=== PATIENT | female | born 1970 | race Caucasian/White ===

== ENCOUNTER 2016-10-28 18:19 | Emergency (ER) | payer OTHER ==
[~2016-10-28] VITALS: Ht 165.1 cm; Wt 110.0 kg
[~2016-10-28 18:19] MED LIST: ATOR80TA PO; BACL10TA PO; BUPR100CR PO; CALC0.25 PO; FLUT1SPR9; HYDR-3534 PO; LIDO2SOL SS; METO50CR PO; MONT10TA2 PO; MYCO500 PO; TRAZ100 PO; WARF1TAB PO
[2016-10-28 18:22] VITALS: BP 146/99; PULSE 84; RESP 20; TEMP 98.3; O2SAT 98
--- NOTE | 2016-10-28 19:13 | PD ---
HPI . Right eye swelling and slight drainage since Monday Chief Complaint: Eye Problems/Injury Time Seen by Provider: 19:12 Travel History International Travel<30 days: No Contact w/Intl Traveler<30days: No Traveled to known affect area: No History of Present Illness HPI 46-year-old female with past medical history of lupus, antiphospholipid syndrome on Coumadin INR for last week, fibromyalgia here with complaints of right eye swelling, redness and drainage since Monday. Patient tells me she went to an eye doctor and was told that they only treat the actual eyeball. She says she just went to an urgent care in [place] and was told that she will need to come in to the emergency department as she takes Coumadin daily and there was no safe antibiotic to prescribe her as an outpatient. Patient complains of mild discomfort in the thigh. She tells me that she has very high pain tolerance due to all of her medical conditions. She is currently taken antifungal secondary some thrush and yeast in her nasal passage. Reports being intermittently sick for the past 3 months. She does follow-up with her primary care provider [place] regularly. She tells me that has the ability to check her INR with a home agency. PFSH Past Medical History Hx Anticoagulant Therapy: Yes Autoimmune Disease: Yes (LUPUS) Depression: Yes High Cholesterol: Yes Cerebrovascular Accident: Yes Diminished Hearing: No Hypertension: Yes Respiratory: Yes Immunizations Current: No Social History Alcohol Use: Yes (OCC) Tobacco Use: Yes (E-CIG) Substance Use: No Allergies-Medications (Allergen,Severity, Reaction): Coded Allergies: No Known Allergies (Unverified , 10/28/16) Reported Meds & Prescriptions Reported Meds & Active Scripts Active Polytrim Opth Drops (Polymyxin/Trimethoprim Sulfate) 10,000-0.1 Unit/Ml-% Soln 1 Drop RIGHT EYE Q6HR 7 Days Clindamycin (Clindamycin HCl) 300 Mg Cap 300 Mg PO TID Lortab 7.5 mg/325 mg (Hydrocodone/Acetaminophen 7.5 mg/325 mg) 1 Tab 1 Tab PO Q6HR PRN Reported Warfarin Sodium 1 mg (Warfarin Sodium) 10 Mg Tab 10 Mg PO DAILY Cellcept 500 Mg Tab (Mycophenolate Mofetil) 500 Mg Tab 1,000 Mg PO Q12 Singulair (Montelukast Sodium) 10 Mg Tab 10 Mg PO HS Metoprolol Succinate ER 50 mg (Metoprolol Succinate) 50 Mg Tab 50 Mg PO HS Lidocaine Viscous (Lidocaine HCl) 2 % Promise 5 Ml SS Q6H PRN SWISH AND SPIT Lortab 7.5 mg/325 mg (Hydrocodone/Acetaminophen 7.5 mg/325 mg) 1 Tab 1 Tab PO TID Flonase Allergy Relief Ch (Fluticasone Propionate (Nasal)) 50 Mcg/Act Spr 2 [place] NA DAILY Calcitriol 0.25 Mcg Cap 0.25 Mcg PO DAILY Wellbutrin Sr (Bupropion HCl) 100 Mg Tab 100 Mg PO Q12 Atorvastatin 80 mg (Atorvastatin Calcium) 80 Mg Tab 80 Mg PO HS Review of Systems General / Constitutional: No: Fever Eyes: Positive: Blurred Vision, Drainage, Redness, No: Visual changes HENT: No: Headaches Cardiovascular: No: Chest Pain or Discomfort Respiratory: No: Shortness of Breath Gastrointestinal: No: Abdominal Pain Genitourinary: No: Dysuria Musculoskeletal: No: Pain Skin: No Rash Neurologic: No: Weakness Psychiatric: No: Depression Endocrine: No: Polydipsia Hematologic/Lymphatic: No: Easy Bruising Physical Exam Narrative GENERAL: AAO x 3, no acute distress, Well-nourished, well-developed patient. SKIN: Warm and dry. No visible rashes or bruising. Periorbital edema and erythema on the right side HEAD: Normocephalic and atraumatic. EYES: No scleral icterus. EOM intact, PERRLA, mild injection of right conjunctiva, there is purulent drainage visible on exam, periorbital edema that is mild and primarily located on upper eyelid, small pustule to right medial upper eyelid, no evidence entrapment. ENT: No nasal drainage noted. Mucous membranes pink. Airway patent. NECK: Supple, trachea midline. No JVD.No lymphadenopathy CARDIOVASCULAR: Regular rate and rhythm without murmurs, gallops, or rubs. RESPIRATORY: Breath sounds equal bilaterally. No accessory muscle use. No rhonchi or rales. GASTROINTESTINAL: Abdomen soft, non-tender, nondistended. EXTREMITIES: No cyanosis or edema. BACK: Nontender without obvious deformity. No CVA tenderness. 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 Data Data Last Documented VS Vital Signs Date Time Temp Pulse Resp B/P Pulse Ox O2 Delivery O2 Flow Rate FiO2 10/28/16 20:08 20 10/28/16 18:22 98.3 84 146/99 98 Room Air Orders Prothrombin Time / Inr (Pt) (10/28/16 19:22) Act Partial Throm Time (Ptt) (10/28/16 19:22) Clindamycin Inj (Cleocin Inj) (10/28/16 19:30) Clindamycin Inj (Cleocin Inj) (10/28/16 20:30) Labs Laboratory Tests Test 10/28/16 20:07 Prothrombin Time 14.6 SEC Prothromb Time International 1.3 RATIO Ratio Activated Partial 31.2 SEC Thromboplast Time MDM Medical Decision Making Medical Screen Exam Complete: Yes Emergency Medical Condition: Yes Medical Record Reviewed: Yes Differential Diagnosis Conjunctivitis, periorbital cellulitis, less likely abscess, Narrative Course 46-year-old female here with what appears to be a periorbital cellulitis and conjunctivitis of the right eye. Myself and Dr. Nunez have examined the patient. I will check her INR. I have provided her with 600 mg of IM clindamycin here in the emergency department. I will send her home with oral antibiotics and eyedrops. Will need to have her INR checked in the next 2 days. I have discussed this with her. She will need to have a follow-up on her eye within the next 2-3 days. She was instructed to return to the emergency department. She can also follow-up with ophthalmology. Patient is cleared for discharge and waiting on INR. I have discussed the case with Dana PENA. She will notify patient of her current INR and ready her for discharge. Patient verbalized understanding of instructions, questions were answered, and thanked me for their care. I advised them if their condition worsens, please return to the nearest emergency room for further care. Diagnosis Primary Impression: Periorbital cellulitis of right eye Additional Impression: Conjunctivitis Qualified Code: H10.31 - Acute conjunctivitis of right eye, unspecified acute conjunctivitis type Referrals: [employer] Patient Instructions: General Instructions Additional Instructions: Please have your INR levels checked in the next 2 days. You will also need to have a recheck of this I within the next 2-3 days. You can return to [place] or go to an [place] [facility]. If you develop any sudden loss of vision or sudden onset of eye pain, go to the nearest emergency department. Please return to emergency department if your symptoms return or worsen. Follow up with your primary care provider. Take medications as prescribed. Med/Other Pt SpecificInfo: Prescription(s) given Scripts Polymyxin B-Trimethoprim Opth Drops (Polytrim Opth Drops)10,000-0.1 Unit/Ml-% Soln1 Drop RIGHT EYE Q6HR 7 Days Ref 0 Prov:Blaise Nunez MD 10/28/16 Clindamycin 300 Mg [id number] Mg PO TID #21 CAP Prov:Blaise Nunez MD 10/28/16 Disposition: 01 DISCHARGE HOME Condition: Stable Madelyn Daugherty Oct 28, 2016 19:13
[2016-10-28] MEDS ORDERED: CLINDAMYCIN PHOS 600 MG/4 ML VIAL IM ONE (19:30)
[2016-10-28] MEDS ORDERED: CLIN1CAP6 PO (19:54)
[2016-10-28] MEDS ORDERED: POLY10O RIGHT EYE (19:54)
[2016-10-28 20:25] LABS: APTT (PATIENT) 31.2 SEC (24.3-30.1); INTERNATIONAL NORMALIZED RATIO 1.3 RATIO; PROTHROMBIN TIME - PATIENT 14.6 SEC (9.8-11.6)
[2016-10-28] MEDS ORDERED: CLINDAMYCIN INJ 600 MG in SODIUM CHLORIDE 0.9% INJ 100 ML IV ONE (20:30)
== END 2016-10-28 21:13 | disposition home or self-care (01) ==
LOC: NEPD 18:19
DX: L03.213 Periorbital cellulitis (principal); H10.31 Unspecified acute conjunctivitis, right eye; H53.8 Other visual disturbances; M32.9 Systemic lupus erythematosus, unspecified; I10 Essential (primary) hypertension; E78.00 Pure hypercholesterolemia, unspecified; D68.61 Antiphospholipid syndrome; Z72.0 Tobacco use; Z79.01 Long term (current) use of anticoagulants
CPT/HCPCS: 85610; 85730; 96374

== ENCOUNTER 2017-07-18 11:31 | Emergency (ER) | payer OTHER ==
[~2017-07-18] VITALS: Ht 170.2 cm; Wt 102.4 kg
[~2017-07-18 11:31] MED LIST changes: -BACL10TA PO; +CLIN300C5 PO; +POLY10O RIGHT EYE; -TRAZ100 PO
[2017-07-18 11:37] VITALS: BP 186/111; PULSE 75; RESP 18; TEMP 98.4; O2SAT 98
--- NOTE | 2017-07-18 12:13 | PD ---
HPI Chief Complaint: Musculoskeletal Complaint Time Seen by Provider: 11:56 Travel History International Travel<30 days: No Contact w/Intl Traveler<30days: No Traveled to known affect area: No History of Present Illness HPI This 47-year-old female is complaining of pain in both of her hips. The pain is quite severe and makes it very difficult for her to walk. She has been diagnosed with arthritis in the past. She has had lupus for many years. She has antiphospholipid antibody syndrome and has had 2 strokes in the past. She is on Eliquis. She also has fibromyalgia. She has been having pain in both of her hips for some time and seems to be getting worse. In the past she has been on steroids for her lupus. She has a history of lupus nephritis. She does not think she has been on steroids for several years. She has numbness of the right side of her body and some motor weakness on the left side secondary to her strokes PFSH Past Medical History Hx Anticoagulant Therapy: Yes Autoimmune Disease: Yes (LUPUS) Depression: Yes Cardiovascular Problems: Yes (HTN) High Cholesterol: Yes Cerebrovascular Accident: Yes Diminished Hearing: No Hypertension: Yes Medical other: Yes (Antiphospholipid syndrome) Respiratory: Yes Immunizations Current: No Tetanus Vaccination: Unknown Influenza Vaccination: No ?: Not : 3 Miscarriage: 3 Tubal Ligation: Yes Social History Alcohol Use: Yes (OCC) Tobacco Use: Yes (1/2 PPD) Substance Use: No Allergies-Medications (Allergen,Severity, Reaction): Coded Allergies: No Known Allergies (Unverified Adverse Reaction, Unknown, 07/18/17) Reported Meds & Prescriptions Reported Meds & Active Scripts Active Celecoxib 100 Mg Cap 100 Mg PO BID 10 Days Hydrocodone-Acetamin 10-325 mg (Hydrocodone/Acetaminophen) 10 Mg-325 Mg Tablet 1 Tab PO Q6HR Polytrim Opth Drops (Polymyxin/Trimethoprim Sulfate) 10,000-0.1 Unit/Ml-% Soln 1 Drop RIGHT EYE Q6HR 7 Days Clindamycin (Clindamycin HCl) 300 Mg Cap 300 Mg PO TID Lortab 7.5 mg/325 mg (Hydrocodone/Acetaminophen 7.5 mg/325 mg) 1 Tab 1 Tab PO Q6HR PRN Reported Warfarin Sodium 1 mg (Warfarin Sodium) 10 Mg Tab 10 Mg PO DAILY Cellcept 500 Mg Tab (Mycophenolate Mofetil) 500 Mg Tab 1,000 Mg PO Q12 Singulair (Montelukast Sodium) 10 Mg Tab 10 Mg PO HS Metoprolol Succinate ER 50 mg (Metoprolol Succinate) 50 Mg Tab 50 Mg PO HS Lidocaine Viscous (Lidocaine HCl) 2 % Promise 5 Ml SS Q6H PRN SWISH AND SPIT Lortab 7.5 mg/325 mg (Hydrocodone/Acetaminophen 7.5 mg/325 mg) 1 Tab 1 Tab PO TID Flonase Allergy Relief Ch (Fluticasone Propionate (Nasal)) 50 Mcg/Act Spr 2 [place] NA DAILY Calcitriol 0.25 Mcg Cap 0.25 Mcg PO DAILY Wellbutrin Sr (Bupropion HCl) 100 Mg Tab 100 Mg PO Q12 Atorvastatin 80 mg (Atorvastatin Calcium) 80 Mg Tab 80 Mg PO HS Review of Systems General / Constitutional: No: Fever, Chills Eyes: No: Diploplia HENT: No: Headaches, Vertigo Cardiovascular: No: Chest Pain or Discomfort, Palpitations Respiratory: No: Cough, Shortness of Breath Gastrointestinal: No: Vomiting, Diarrhea Genitourinary: No: Urgency, Frequency Musculoskeletal: Positive: Myalgias, Pain Skin: No Rash Neurologic: Positive: Weakness Endocrine: No: Cold Intolerance Hematologic/Lymphatic: No: Easy Bruising Physical Exam Narrative GENERAL: Well-developed female SKIN: Focused skin assessment warm/dry. HEAD: Atraumatic. Normocephalic. EYES: Pupils equal and round. No scleral icterus. No injection or drainage. ENT: No nasal bleeding or discharge. Mucous membranes pink and moist. NECK: Trachea midline. No JVD. CARDIOVASCULAR: Regular rate and rhythm. No murmur appreciated. RESPIRATORY: No accessory muscle use. Clear to auscultation. Breath sounds equal bilaterally. GASTROINTESTINAL: Abdomen soft, non-tender, nondistended. Hepatic and splenic margins not palpable. MUSCULOSKELETAL: No obvious deformities. No clubbing. No cyanosis. No edema. There is tenderness of both hips. She has pain with movement of both hips there is crepitance with movement of the right hip and knee NEUROLOGICAL: Awake and alert. No obvious cranial nerve deficits. Motor grossly within normal limits. Normal speech. PSYCHIATRIC: Appropriate mood and affect; insight and judgment normal. Data Data Last Documented VS Vital Signs Date Time Temp Pulse Resp B/P (MAP) Pulse Ox O2 Delivery O2 Flow Rate FiO2 07/18/17 11:37 98.4 75 18 186/111 (136) 98 Orders Orders Hip, Uni(Ap&Lat) Wo Ap Pelvis (07/18/17 12:10) Hip, Uni(Ap&Lat) W Ap Pelvis (07/18/17 12:10) MDM Medical Decision Making Medical Screen Exam Complete: Yes Emergency Medical Condition: Yes Medical Record Reviewed: Yes Differential Diagnosis Differential includes aseptic necrosis, osteoarthritis, Narrative Course X-ray shows loss of joint space and sclerosis consistent with osteoarthritis. Patient has plans to follow-up with orthopedic surgery. She is quite symptomatic and may well need hip replacement though be quite complicated in view of her medical issues Diagnosis Primary Impression: Osteoarthritis of hips, bilateral Scripts Celecoxib (Celecoxib) 100 Mg Cap 100 MG PO BID for Pain Management for 10 Days, #20 CAP 0 Refills Prov: Raciel Cartagena MD 07/18/17 Hydrocodone/Acetaminophen (Hydrocodone-Acetamin 10-325 mg) 10 Mg-325 Mg Tablet 1 TAB PO Q6HR for Pain, #20 Prov: Raciel Cartagena MD 07/18/17 Disposition: 01 DISCHARGE HOME Condition: Stable Raciel Cartagena MD Jul 18, 2017 12:13
[2017-07-18] MEDS ORDERED: CELE1CAP6 PO (13:27)
[2017-07-18] MEDS ORDERED: HYDR-3583 PO (13:27)
--- NOTE | 2017-07-18 13:29 | RADRPT ---
EXAM DATE/TIME: 07/18/2017 12:29 [facility] COMPARISON: No previous studies available for comparison. INDICATIONS : Chronic right hip pain with no known injury x 2+ weeks. MEDICAL HISTORY : CVA x 2. Hpertension. Hypercholesterolemia. Arthritis. Lupus. Antiphospholipid antibody syndrome. Fib romyalgia. SURGICAL HISTORY : Tubal ligation. ENCOUNTER: Initial ACUITY: 2 weeks PAIN SCORE: 9/10 LOCATION: Right hip FINDINGS: AP and lateral views of the right hip joint demonstrate no fracture or dislocation. There is severe s uperior joint space narrowing with subchondral sclerosis and likely subchondral cystic change. There are minimal osteophytes. Left hip joint is not well-visualized but also demonstrates severe superior joint space narrowing. No soft tissue abnormality or radiopaque foreign body is identified. CONCLUSION: Severe arthritis at the right hip joint, most likely osteoarthritis. No acute right hip abnormality i s identified. Sigifredo Hooks MD on July 18, 2017 at 13:27 Board Certified Radiologist. This report was verified electronically.
--- NOTE | 2017-07-18 13:31 | RADRPT ---
EXAM DATE/TIME: 07/18/2017 12:29 [facility] COMPARISON: No previous studies available for comparison. INDICATIONS : Chronic Left hip pain with no known injury x 2+ weeks. MEDICAL HISTORY : CVA x 2. Hpertension. Hypercholesterolemia. Arthritis. Lupus. Antiphospholipid antibody syndrome. Fib romyalgia. SURGICAL HISTORY : Tubal ligation. ENCOUNTER: Initial ACUITY: 2 weeks PAIN SCORE: 9/10 LOCATION: Left hip FINDINGS: AP view of the pelvis with 2 views of the left hip joint demonstrate no fracture or dislocation. Mine ralization is normal. There is severe superior joint space narrowing with mild superior lateral migra tion of the femoral head. Mild subchondral sclerosis is present with minimal osteophytes. No soft tis gideon abnormality is seen. CONCLUSION: Severe left hip joint arthritis with mild superior lateral migration of the femoral head. These horta es may be related to osteoarthritis and the findings appear similar in the right hip joint. Sigifredo Hooks MD on July 18, 2017 at 13:28 Board Certified Radiologist. This report was verified electronically.
[2017-07-18 14:14] LABS: BILIRUBIN, URINE NEG (NEG); BLOOD, URINE NEG (NEG); GLUCOSE,URINE NEG (NEG); KETONE, URINE NEG (NEG); NITRITE,URINE NEG (NEG); URINE LEUKOCYTE ESTERASE NEG (NEG)
[2017-07-18 14:23] LABS: URINE COLOR STRAW (YELLW/STRAW); WBC, URINE 0-2 /hpf (0-5)
[2017-07-18 14:24] LABS: SQUAMOUS EPITHELIAL CELL URINE 0-3 /hpf (0-5)
[2017-07-18 14:45] VITALS: BP_SYST 120; BP_SYST 168; BP_DIAS 68; BP_DIAS 98
== END 2017-07-18 14:47 | disposition home or self-care (01) ==
LOC: PHED 11:31
DX: M16.0 Bilateral primary osteoarthritis of hip (principal); D68.61 Antiphospholipid syndrome; M32.14 Glomerular disease in systemic lupus erythematosus; I63.9 Cerebral infarction, unspecified; G81.91 Hemiplegia, unspecified affecting right dominant side; I10 Essential (primary) hypertension; F32.9 Major depressive disorder, single episode, unspecified; F17.210 Nicotine dependence, cigarettes, uncomplicated; Z79.01 Long term (current) use of anticoagulants
CPT/HCPCS: 73502; 81001; 99284

== ENCOUNTER → 2017-09-22 | Outpatient (CLI) | payer OTHER ==
[~2017-09-22] MED LIST changes: +AMIT25TA9 PO; +APIX2.5T PO; +APIX5TAB PO; +ATOR80TA45 PO; +CELE100C PO; +CELE1CAP6 PO; +FLUO40CA PO; +HYDR-3583 PO; +METO25TA3 PO; +MONT10TA4 PO; +MYCO500T PO; +OMEP40CA2 PO; +OXYB5TAB8 PO; +SPIR25TA PO; +TIZA4CAP3 PO; +WALKER WHEELS/F1 MIS
== END ==
LOC: CPRE 11:11
PROVIDERS: ATTEND Orthopaedic Surgery Orthopaedic Surgery of the Spine
DX: Z01.810 Encounter for preprocedural cardiovascular examination (principal)

== ENCOUNTER 2017-09-26 06:23 | Inpatient (IN) | payer OTHER, MEDICARE ==
[~2017-09-26] VITALS: Ht 165.1 cm; Wt 113.5 kg
[~2017-09-26 06:23] MED LIST changes: -APIX2.5T PO; -ATOR80TA PO; -BUPR100CR PO; -CELE1CAP6 PO; -CLIN300C5 PO; -FLUT1SPR9; -HYDR-3534 PO; -LIDO2SOL SS; -METO50CR PO; -MONT10TA2 PO; -MYCO500 PO; -POLY10O RIGHT EYE; -WALKER WHEELS/F1 MIS; -WARF1TAB PO
[2017-09-26] MEDS ORDERED: MIDAZOLAM HCL 2 MG/2 ML VIAL ONE (07:05)
[2017-09-26] MEDS ORDERED: POVIDONE IODINE 5% (ANTISEPSIS KIT) 4 APPLICATIONS EACH NARE PRN (07:15)
[2017-09-26] MEDS ORDERED: SODIUM CHLORID 0.9% 500 ML IV PRN (07:15)
[2017-09-26] MEDS ORDERED: LACTATED RINGER'S 1000 ML IV PRN (07:15)
[2017-09-26] MEDS ORDERED: CHLORHEXIDINE GLUCONATE 2 % 1 PACK (2 CLOTHS) TOPICAL PRN (07:15)
[2017-09-26] MEDS ORDERED: METOPROLOL TARTRATE 25 MG TAB PO PRN (07:15)
[2017-09-26] MEDS ORDERED: GENTAMICIN SULFATE 80 MG/2 ML VIAL ONE (08:17)
[2017-09-26] MEDS ORDERED: VANCOMYCIN 1 GM/200 ML PREMIX IV SCH (09:00)
[2017-09-26] MEDS ORDERED: CHLORHEXIDINE GLUCONATE 4% SOLN 120 ML BTL TOPICAL SCH (09:00)
[2017-09-26] MEDS ORDERED: EXPAREL PERI-ARTICULAR INJECTION (TOTAL VOL. 60 ML) P-ARTICULR SCH ×2 (09:00)
[2017-09-26] MEDS ORDERED: TRANEXAMIC ACID INJ 1,135 MG in SODIUM CHLORIDE 0.9% INJ 100 ML IV SCH (09:00)
[2017-09-26] MEDS ORDERED: ceFAZolin 2 GM PREMIX 50 ML IV SCH (09:00)
[2017-09-26] MEDS ORDERED: BUPIVACAINE/EPINEPHRINE 0.5% PF 10 ML VIAL ONE (11:02)
[2017-09-26] MEDS ORDERED: SODIUM CHLORIDE 0.9% 20 ML VIAL ONE (11:02)
[2017-09-26] MEDS ORDERED: ONDANSETRON HCL 4 MG/2 ML VIAL IV PUSH ONE (12:00)
[2017-09-26] MEDS ORDERED: MORPHINE SULFATE 8 MG/ML INJ IM PRN (12:00)
[2017-09-26] MEDS ORDERED: PROPOFOL 200 MG/20 ML AMP IV ONE (12:00)
[2017-09-26] MEDS ORDERED: NALOXONE HCL 0.4 MG/ML AMP IV PUSH PRN (12:00)
[2017-09-26] MEDS ORDERED: NEOSTIGMINE 5 MG/5 ML SYRINGE IV PUSH ONE (12:00)
[2017-09-26] MEDS ORDERED: ceFAZolin INJ 1,000 MG VIAL IV ONE (12:00)
[2017-09-26] MEDS ORDERED: ROCURONIUM INJ 50 MG/5 ML SYRINGE IV PUSH ONE (12:00)
[2017-09-26] MEDS ORDERED: LACTATED RINGER'S 1000 ML INJ 1,000 ML IV ONE (12:00)
[2017-09-26] MEDS ORDERED: LIDOCAINE HCL 1% PF 5 ML SYRINGE OTHER ONE (12:00)
[2017-09-26] MEDS ORDERED: KETOROLAC TROMETHAMINE 30 MG/ML (IVP) VIAL IV PUSH ONE (12:00)
[2017-09-26] MEDS ORDERED: GLYCOPYRROLATE 1 MG/5 ML SYRINGE IV PUSH ONE (12:00)
--- NOTE | 2017-09-26 12:04 | PD.OP ---
cc: Alex Gonzalez MD Operative Report Osteoarthritis left hip. Avascular necrosis, left hip. Acetabular dysplasia, left hip Postoperative Diagnosis: Same Procedure: Left total hip replacement arthroplasty, direct anterior exposure Anesthesia: General Surgeon: Alex Gonzalez Circus Trainer(s): LIANNA Robles Operation and Findings: EBL: 300 cc INDICATION: This patient presents with significant hip pain related to severe acetabular dysplasia with osteoarthritis and evidence of avascular necrosis. She has bilateral hip disease. The patient has significant medical conditions and has had a previous CVA many years ago related to a hypercoagulable state. She has weakness of the left leg. We anticipate bilateral hip replacement because of severe arthritis to the point that she is unable to ambulate other than transferring. Despite extensive conservative care this patient continues to be painful and now presents for surgical treatment. NOTE: Genia Robles PA-C was present for the entire surgical procedure as my legal executive assistant. In my medical opinion her skill and care was necessary for the proper management of this patient. COMPONENTS: COMPANY: [employer] CUP: [place], 48 mm, 100 series, gription surface LINER: Altrx 32, neutral STEM: [place], size 11, standard offset, hydroxyapatite-coated HEAD: Ceramic, 32, +1, 05/04 taper PROCEDURE: This patient was brought to the operating room and anesthetized in the supine position and positioned on the fracture table with both legs held extended. The left hip and leg was scrubbed with alcohol followed by Hibiclens followed by ChloraPrep and draped sterilely. Antibiotics were given within routine time window and a timeout was done. A 4 inch incision was made starting 2 cm distal and 2 cm lateral to the anterior superior iliac spine. The fascia laurel was opened longitudinally. The interval between the fascia laurel and the rectus was opened down to the capsule of the hip joint. Retractors were positioned allowing good visualization of the capsule. This was opened longitudinally and flaps were created. Stay sutures were utilized. Exposure was excellent. The neck was cut at the proper location using fluoroscopy as a guide. The head was removed. Deep retractors were positioned allowing good visualization of the acetabulum. Acetabulum was deepened down to the floor starting with a proper size reamer and reaming up to 47 mm. A trial was utilized. Fluoroscopy was used to check position and confirmed satisfactory alignment. Some of the reaming was performed under direct fluoroscopic guidance. The rim was reamed with a 48 mm reamer and the final cup was positioned in approximately 20 of anteversion and 40-45 of abduction. Position was satisfactory. A single hole eliminator was positioned followed by the final liner. The lifting hook was utilized. The leg was dropped to the floor, maximally externally rotated and brought across the midline. Retractors were positioned. A box osteotome was utilized followed by progressive broaching to the proper stem size. Trial reduction showed excellent alignment and fit. With 60 of external rotation the leg was dropped to the floor without evidence of anterior subluxation. The wound was irrigated. The final stem was inserted and was found to be very stable. The final reduction using the final head. Stability was as previously noted. Intraoperative x-rays were taken. The wound was irrigated copiously. Hemostasis was controlled. Local anesthesia was utilized. The capsule was repaired with #2 Tycron sutures. The fascia laurel was repaired with running 0 PDS on a loop. Subcutaneous tissue was approximated with 2-0 Vicryl and skin with running intradermal 3-0 Vicryl followed by Steri-Strips. A sterile dressing was applied. The patient was awakened and taken to the recovery room in satisfactory condition. FINDINGS: There was severe acetabular dysplasia. Cup position was slightly higher than normal but overall had very good circumferential coverage allowing us to place a 100 series cup without screws. Final stability fit and fill and leg length was very satisfactory. We intentionally lengthened the leg by about 6-8 mm. Alex Gonzalez MD September 26, 2017 12:04
--- NOTE | 2017-09-26 12:06 | RADRPT ---
EXAM DATE/TIME: 09/26/2017 10:14 [facility] COMPARISON: No previous studies available for comparison. INDICATIONS : Left total hip replacement. MEDICAL HISTORY : None. SURGICAL HISTORY : None. ENCOUNTER: Initial ACUITY: 1 day PAIN SCORE: Non-responsive. LOCATION: Left Hip FINDINGS: A two view intraoperative examination of the left hip was performed. Left total hip arthroplasty. Bot h the acetabular and femoral components are appropriately positioned without fracture or dislocation. CONCLUSION: Appropriate postoperative appearance of the left hip status post total arthroplasty. Bronson Joyce MD on September 26, 2017 at 12:03 Board Certified Radiologist. This report was verified electronically.
[2017-09-26] MEDS ORDERED: APIX2.5T PO (12:07)
[2017-09-26] MEDS ORDERED: HYDR-3583 PO (12:07)
[2017-09-26] MEDS ORDERED: Post-op Orders (for Pharmacy) XX ONE (12:30)
[2017-09-26] MEDS ORDERED: *morphine SULFATE 4 MG/ML PERIprocedure ONLY ONE ×2 (12:58→13:13)
[2017-09-26] MEDS: LACTATED RINGER'S 1000 ML INJ 1,000 ML IV SCH (13:00)
[2017-09-26] MEDS: AMITRIPTYLINE HCL 25 MG TAB PO SCH ×2 (13:00→18:16)
[2017-09-26] MEDS ORDERED: DO NOT ADM ANY ANTICOAGULANT DRUGS PRN (13:45)
[2017-09-26] MEDS ORDERED: *HYDROmorphone PF 0.5 MG/0.5 ML PERIprocedure ONLY ONE (13:47)
[2017-09-26 16:00] VITALS: BP 133/76; PULSE 78; RESP 18; TEMP 97.6; O2SAT 95
[2017-09-26 17:27] VITALS: O2SAT 95
[2017-09-26 20:50] VITALS: BP 145/82; PULSE 79; RESP 17; TEMP 98.1; O2SAT 99
[2017-09-26] MEDS: MONTELUKAST SODIUM 10 MG TAB PO SCH (21:00)
[2017-09-26] MEDS: CELECOXIB 100 MG CAP PO SCH (21:34)
[2017-09-26] MEDS: MAGNESIUM HYDROXIDE SUSP 30 ML CUP PO SCH (21:34)
[2017-09-26] MEDS: OXYBUTYNIN CHLORIDE 5 MG TAB PO SCH (21:35)
[2017-09-26] MEDS: SENNOSIDES 8.6 MG TAB PO SCH (21:35)
[2017-09-26] MEDS: METOPROLOL TARTRATE 25 MG TAB PO SCH (21:36)
[2017-09-26] MEDS: ATORVASTATIN 80 MG TAB PO SCH (21:36)
[2017-09-26] MEDS: ACETAMINOPHEN/HYDROcodone 325 MG/10 MG TAB PO PRN (21:59)
[2017-09-26] MEDS: APIXABAN 2.5 MG TABLET PO SCH (22:17)
--- NOTE | 2017-09-26 22:28 | HHI.DCPOC ---
Discharge Care Plan Diagnosis: (1) Avascular necrosis of bone of left hip Your Health Problems Are: Difficulty with ADL Incision/Drains Swelling Goals to Promote Your Health * To prevent worsening of your condition and complications * To maintain your health at the optimal level Directions to Meet Your Goals Take your medications as prescribed Follow your dietary instruction Follow activity as directed Keep your appointments as scheduled Take your immunizations and boosters as scheduled If your symptoms worsen call your PCP, if no PCP go to Urgent Care Center or Emergency Room Smoking is Dangerous to Your Health. Avoid second hand smoke Call the 24-hour hour crisis hotline for domestic abuse at [facility] September 26, 2017 22:28
--- NOTE | 2017-09-26 22:28 | HHI.FF ---
Face to Face Verification Diagnosis: (1) Avascular necrosis of bone of left hip Physical Therapy Gait training, Safety evaluation, Transfer training, bed to chair Hip: Total hip, Protocol: Left, Progress to weight bearing Left LE Weight Bearing: WB as tolerated Additional Instructions PT 4 days/wk for 2 weeks. WBAT Left LE. Anterior ZARIA precautions. Walker assist. Nursing RN Days per Week: 2 x Week(s): 1 Dressing Changes: Do not change dressing Additional Instructions Vitals assessment. Dressing assessment - do not change unless saturated. I have seen patient Krystal Mccormick on 09/26/17. My clinical findings support the need for the requested home health care services because: Limited ability to care for self High risk of falls I certify that my clinical findings support that this patient is homebound because: Post-op weakness Unsteady gait/balance [facility] September 26, 2017 22:28
--- NOTE | 2017-09-26 22:29 | HHI.DS ---
Discharge Summary Admission Date September 26, 2017 at 06:23 Discharge Date: September 28, 2017 Admitting Diagnosis see below Diagnosis: (1) Avascular necrosis of bone of left hip Diagnosis: Principal ICD Codes: M87.052 - Idiopathic aseptic necrosis of left femur Procedures Left total hip arthroplasty, direct anterior approach Brief History This is a 47 year old female patient Pt Condition on Discharge: Stable Discharge Disposition: Disch w/ Home Health Serv Discharge Instructions Diet Instructions: As Tolerated, No Restrictions, High Fiber Diet Activities You Can Perform: Weight Bearing as [place] Activities to Avoid: Strenuous Activity Additional Activity Instruc.: ZARIA protocol New Medications: Walker with Front Wheels (Walker with Front Wheels) 1 Mis Mis EA .XX DIRECTED, #1 0 Refills Apixaban (Eliquis) 2.5 Mg Tab 2.5 MG PO BID for Prevent Blood Clot, #16 TAB Hydrocodone/Acetaminophen (Hydrocodone-Acetamin 10-325 mg) 10 Mg-325 Mg Tablet 1 TAB PO Q4H PRN for Pain, #42 TAB Continued Medications: Amitriptyline (Amitriptyline) 25 Mg Tab 25 MG PO TID, TAB Atorvastatin (Atorvastatin) 80 Mg Tab 80 MG PO HS for Cholesterol Management, #30 TAB 0 Refills Calcitriol (Calcitriol) 0.25 Mcg Cap 0.25 MCG PO DAILY for Calcium Supplement, #30 CAP 0 Refills Celecoxib (Celebrex) 100 Mg Cap 100 MG PO BID for Pain Management, CAP 0 Refills Fluoxetine (Fluoxetine) 40 Mg Cap 40 CAP PO DAILY, #30 CAP 0 Refills Hydrocodone-Acetaminophen (Hydrocodone-Acetaminophen) 10-325 mg Tab 1 TAB PO Q4H PRN for PAIN, TAB 0 Refills Metoprolol Tartrate (Metoprolol Tartrate) 25 Mg Tab 25 MG PO BID, #60 TAB 0 Refills Montelukast (Montelukast) 10 Mg Tab 10 MG PO HS, #30 TAB 0 Refills Mycophenolate (Mycophenolate) 500 Mg Tab 1000 MG PO BID for Immunosuppression, #120 TAB 0 Refills Omeprazole (Omeprazole) 40 Mg Cap 40 MG PO DAILY, #30 CAP 0 Refills Oxybutynin (Ditropan) 5 Mg Tab 5 MG PO Q12HR for Urinary Symptom Managemen, #60 TAB 0 Refills Spironolactone (Spironolactone) 25 Mg Tab 25 MG PO DAILY, #30 TAB 0 Refills Tizanidine (Tizanidine) 4 Mg Cap 4 MG PO TID for Muscle Spasm, CAP 0 Refills Discontinued Medications: Apixaban (Eliquis) 5 Mg Tab 5 MG PO BID for Blood Clot Prevention, #60 TAB 0 Refills [facility] September 26, 2017 22:29
[2017-09-26] MEDS ORDERED: WALKER WHEELS/F1 MIS (22:30)
[2017-09-27] VITALS: BP 128/80; PULSE 86; RESP 17; TEMP 98.5; O2SAT 95
[2017-09-27] MEDS: LACTATED RINGER'S 1000 ML INJ 1,000 ML IV SCH (00:27)
[2017-09-27] MEDS: ACETAMINOPHEN/HYDROcodone 325 MG/10 MG TAB PO PRN ×5 (03:50→22:27)
[2017-09-27 04:00] VITALS: BP 122/67; PULSE 84; RESP 17; TEMP 98.5; O2SAT 97
[2017-09-27 05:12] LABS: HEMATOCRIT 30.5 % (35.0-46.0); HEMOGLOBIN 10.4 GM/DL (11.6-15.3)
[2017-09-27 08:00] VITALS: BP 118/61; PULSE 83; RESP 18; TEMP 98.1; O2SAT 97
[2017-09-27] MEDS: OXYBUTYNIN CHLORIDE 5 MG TAB PO SCH ×2 (08:38→20:39)
[2017-09-27] MEDS: MAGNESIUM HYDROXIDE SUSP 30 ML CUP PO SCH ×2 (08:38→20:39)
[2017-09-27] MEDS: PANTOPRAZOLE SOD 40 MG DELAYED RELEASE TAB PO SCH (08:38)
[2017-09-27] MEDS: APIXABAN 2.5 MG TABLET PO SCH ×2 (08:39→20:40)
[2017-09-27] MEDS: FLUoxetine HCL 20 MG CAP PO SCH (08:39)
[2017-09-27] MEDS: AMITRIPTYLINE HCL 25 MG TAB PO SCH ×3 (08:39→18:34)
[2017-09-27] MEDS: METOPROLOL TARTRATE 25 MG TAB PO SCH ×2 (08:39→20:39)
[2017-09-27] MEDS: SPIRONOLACTONE 25 MG TAB PO SCH (08:39)
[2017-09-27] MEDS: CELECOXIB 100 MG CAP PO SCH ×2 (08:40→20:39)
[2017-09-27] MEDS ORDERED: INFLUENZA VIRUS VACCINE (QUADRIVALENT) 0.5 ML SYR IM ONE (10:00)
[2017-09-27] MEDS ORDERED: PNEUMOCOCCAL POLYVALENT INJ 25 MCG/0.5 ML SYR IM ONE (10:00)
[2017-09-27 12:00] VITALS: BP 105/62; PULSE 81; RESP 18; TEMP 98.3; O2SAT 98
--- NOTE | 2017-09-27 13:37 | PD.ORT.PN ---
Subjective Subjective Remarks Pain moderate left hip. No new leg pain. Struggled with basic transitions and using walker. Concerned about going home. Her parents are local but she states she has 'no one to help her'. No new CP or SOB. Objective Vitals Vital Signs Date Time Temp Pulse Resp B/P (MAP) Pulse Ox O2 Delivery O2 Flow Rate FiO2 09/27/17 12:00 98.3 81 18 105/62 (76) 98 09/27/17 08:00 98.1 83 18 118/61 (80) 97 09/27/17 04:00 98.5 84 17 122/67 (85) 97 09/27/17 00:00 98.5 86 17 128/80 (96) 95 09/26/17 20:50 98.1 79 17 145/82 (103) 99 09/26/17 17:27 95 Nasal Cannula 3.00 09/26/17 16:00 97.6 78 18 133/76 (95) 95 09/26/17 14:45 97.1 70 16 166/79 (108) 95 Nasal Cannula 3 09/26/17 14:00 82 20 166/79 (108) 95 I/O 09/26/17 09/26/17 09/26/17 09/27/17 09/27/17 09/27/17 07:00 15:00 23:00 07:00 15:00 23:00 Intake Total 1400 ml 720 ml Output Total 300 ml Balance 1100 ml 720 ml Intake Oral 720 ml Other 1400 ml Output Estimated Blood Loss 300 ml # Voids 1 2 # Bowel Movements 0 Result Diagram: 09/27/17 0459 Procedures Left total hip arthroplasty, direct anterior approach Objective Remarks Sitting up in chair NAD VSS LLE Hip dressing c/d/i, minimal drainage inguinal fold, mild swelling, no erythema +motor at distal, +sens, +nvi Neg homans Assessment & Plan Ortho Post Op Day #: 1 Problem List: (1) Avascular necrosis of bone of left hip ICD Codes: M87.052 - Idiopathic aseptic necrosis of left femur Assessment and Plan pod#1 s/p L ZARIA, anterior Pain moderately controlled. PO pain meds as needed. Ice left hip bid. DVT prophylaxis - Eliquis 2.5mg bid then resume normal dose. PT - WBAT LLE. Anterior ZARIA protocol. Hold dressing changes unless saturated. D/C planning, C versus SNF monday. She has little help and has poor balance from previous TIA - likely SNF. DME written. Sagrario Laura September 27, 2017 13:37
[2017-09-27 16:00] VITALS: BP 106/62; PULSE 85; RESP 18; TEMP 98; O2SAT 97
[2017-09-27 20:00] VITALS: BP 127/80; PULSE 101; RESP 20; TEMP 97.9; O2SAT 94
[2017-09-27] MEDS: SENNOSIDES 8.6 MG TAB PO SCH (20:39)
[2017-09-27] MEDS: MONTELUKAST SODIUM 10 MG TAB PO SCH (20:39)
[2017-09-27] MEDS: ATORVASTATIN 80 MG TAB PO SCH (20:40)
[2017-09-28] VITALS (7 sets, daily range): BP systolic 102–129; BP diastolic 55–85; PULSE 81–87; RESP 15–19; TEMP 97.2–97.8; O2SAT 87–96
[2017-09-28] MEDS: LACTATED RINGER'S 1000 ML INJ 1,000 ML IV SCH ×2 (01:27→13:57)
[2017-09-28] MEDS: ACETAMINOPHEN/HYDROcodone 325 MG/10 MG TAB PO PRN ×4 (03:50→17:44)
[2017-09-28] MEDS: MAGNESIUM HYDROXIDE SUSP 30 ML CUP PO SCH ×2 (08:18→20:47)
[2017-09-28] MEDS: CELECOXIB 100 MG CAP PO SCH ×2 (08:18→20:47)
[2017-09-28] MEDS: AMITRIPTYLINE HCL 25 MG TAB PO SCH ×3 (08:18→17:43)
[2017-09-28] MEDS: FLUoxetine HCL 20 MG CAP PO SCH (08:18)
[2017-09-28] MEDS: PANTOPRAZOLE SOD 40 MG DELAYED RELEASE TAB PO SCH (08:18)
[2017-09-28] MEDS: SPIRONOLACTONE 25 MG TAB PO SCH (08:19)
[2017-09-28] MEDS: OXYBUTYNIN CHLORIDE 5 MG TAB PO SCH ×2 (08:19→20:47)
[2017-09-28] MEDS: APIXABAN 2.5 MG TABLET PO SCH ×2 (08:19→20:47)
[2017-09-28] MEDS: METOPROLOL TARTRATE 25 MG TAB PO SCH ×2 (09:00→20:47)
[2017-09-28] MEDS: diphenhydrAMINE HCL 25 MG CAP PO PRN (14:31)
--- NOTE | 2017-09-28 16:39 | PD.ORT.PN ---
Subjective Subjective Remarks Looks good this morning. Pain appears to be well controlled. Mild swelling left thigh Objective Vitals Vital Signs Date Time Temp Pulse Resp B/P (MAP) Pulse Ox O2 Delivery O2 Flow Rate FiO2 09/28/17 12:00 97.8 84 16 129/74 (92) 96 09/28/17 11:45 16 09/28/17 10:27 97.2 85 15 102/55 (71) 92 09/28/17 08:00 97.5 87 16 107/59 (75) 96 09/28/17 07:30 97.5 87 16 107/59 (75) 87 09/28/17 00:00 97.8 83 19 123/64 (83) 91 09/27/17 20:00 97.9 101 20 127/80 (96) 94 I/O 09/27/17 09/27/17 09/27/17 09/28/17 09/28/17 09/28/17 07:00 15:00 23:00 07:00 15:00 23:00 Intake Total 720 ml 600 ml 1200 ml Balance 720 ml 600 ml 1200 ml Intake Oral 720 ml 600 ml 1200 ml # Voids 2 1 2 # Bowel Movements 0 0 Result Diagram: 09/27/17 0459 Procedures Left total hip arthroplasty, direct anterior approach Objective Remarks Sitting in bed NAD VSS LLE Hip dressing c/d/i, minimal drainage inguinal fold, mild swelling, no erythema +motor at distal, +sens, +nvi Neg homans Assessment & Plan Ortho Post Op Day #: 2 Problem List: (1) Avascular necrosis of bone of left hip ICD Codes: M87.052 - Idiopathic aseptic necrosis of left femur Assessment and Plan pod#2 s/p L ZARIA, anterior Pain moderately controlled. PO pain meds Ice left hip bid. DVT prophylaxis - Eliquis 2.5mg bid then resume normal dose. PT - WBAT LLE. Anterior ZARIA protocol. Hold dressing changes unless saturated. D/C planning, SNF today versus tomorrow DME written. Alex Gonzalez MD September 28, 2017 16:39
[2017-09-28] MEDS: ATORVASTATIN 80 MG TAB PO SCH (20:47)
[2017-09-28] MEDS: SENNOSIDES 8.6 MG TAB PO SCH (20:47)
[2017-09-28] MEDS: MONTELUKAST SODIUM 10 MG TAB PO SCH (20:47)
[2017-09-29] VITALS: BP 114/56; PULSE 96; RESP 19; TEMP 97.1; O2SAT 93
[2017-09-29] MEDS: LACTATED RINGER'S 1000 ML INJ 1,000 ML IV SCH ×2 (02:27→12:48)
[2017-09-29] MEDS: ACETAMINOPHEN/HYDROcodone 325 MG/10 MG TAB PO PRN ×4 (04:04→15:35)
[2017-09-29 07:15] VITALS: BP 129/79; PULSE 94; RESP 20; TEMP 97.2; O2SAT 94
[2017-09-29] MEDS: PANTOPRAZOLE SOD 40 MG DELAYED RELEASE TAB PO SCH (07:18)
[2017-09-29] MEDS: OXYBUTYNIN CHLORIDE 5 MG TAB PO SCH (07:18)
[2017-09-29] MEDS: APIXABAN 2.5 MG TABLET PO SCH (07:18)
[2017-09-29] MEDS: CELECOXIB 100 MG CAP PO SCH (07:18)
[2017-09-29] MEDS: AMITRIPTYLINE HCL 25 MG TAB PO SCH ×2 (07:18→12:47)
[2017-09-29] MEDS: METOPROLOL TARTRATE 25 MG TAB PO SCH (07:18)
[2017-09-29] MEDS: SPIRONOLACTONE 25 MG TAB PO SCH (07:19)
[2017-09-29] MEDS: diphenhydrAMINE HCL 25 MG CAP PO PRN (07:19)
[2017-09-29] MEDS: FLUoxetine HCL 20 MG CAP PO SCH (07:19)
[2017-09-29] MEDS: MAGNESIUM HYDROXIDE SUSP 30 ML CUP PO SCH (07:20)
--- NOTE | 2017-09-29 07:33 | PD.ORT.PN ---
Subjective Subjective Remarks Looks good this morning. Pain appears to be well controlled. Mild swelling left thigh. No new complaints Objective Vitals Vital Signs Date Time Temp Pulse Resp B/P (MAP) Pulse Ox O2 Delivery O2 Flow Rate FiO2 09/29/17 00:00 97.1 96 19 114/56 (75) 93 09/28/17 20:00 97.2 83 19 126/78 (94) 95 09/28/17 16:00 97.8 81 16 118/85 (96) 96 09/28/17 12:00 97.8 84 16 129/74 (92) 96 09/28/17 11:45 16 09/28/17 10:27 97.2 85 15 102/55 (71) 92 09/28/17 08:00 97.5 87 16 107/59 (75) 96 I/O 09/28/17 09/28/17 09/28/17 09/29/17 09/29/17 09/29/17 07:00 15:00 23:00 07:00 15:00 23:00 Intake Total 1200 ml 600 ml 500 ml 800 ml Balance 1200 ml 600 ml 500 ml 800 ml Intake Oral 1200 ml 600 ml 500 ml 800 ml # Voids 2 2 2 # Bowel Movements 0 Result Diagram: 09/27/17 0459 Procedures Left total hip arthroplasty, direct anterior approach Objective Remarks Sitting in bed NAD VSS LLE Hip dressing c/d/i, minimal drainage inguinal fold, mild swelling, no erythema +motor at distal, +sens, +nvi Neg homans Assessment & Plan Problem List: (1) Avascular necrosis of bone of left hip ICD Codes: M87.052 - Idiopathic aseptic necrosis of left femur Assessment and Plan AVN bilateral hips. History of CVA. Pod#3 s/p L ZARIA, anterior Pain controlled. PO pain meds Ice left hip bid. DVT prophylaxis - Eliquis 2.5mg bid then resume normal dose. PT - WBAT LLE. Anterior ZARIA protocol. Hold dressing changes unless saturated. D/C planning, SNF today DME written. Alex Gonzalez MD September 29, 2017 07:33
--- NOTE | 2017-09-29 07:36 | HHI.DS ---
Discharge Summary Admission Date September 26, 2017 at 06:23 Discharge Date: September 29, 2017 Admitting Diagnosis Avascular necrosis bilateral hips. History of CVA, remote. Hypercoagulable state Diagnosis: (1) Avascular necrosis of bone of left hip Diagnosis: Principal ICD Codes: M87.052 - Idiopathic aseptic necrosis of left femur Procedures Left total hip arthroplasty, direct anterior approach Brief History This is a 47 year old female patient CBC/BMP: 09/27/17 0459 Significant Findings Laboratory Tests Test 09/27/17 04:59 Hemoglobin 10.4 GM/DL (11.6-15.3) Hematocrit 30.5 % (35.0-46.0) PE at Discharge Sitting in bed NAD VSS LLE Hip dressing c/d/i, minimal drainage inguinal fold, mild swelling, no erythema +motor at distal, +sens, +nvi Neg [facility] Hospital Course The patient was admitted electively for hip replacement arthroplasty. She has a history of CVA and avascular necrosis of both hips related to treatment of her underlying medical conditions. She presents for staged bilateral hip replacement. She went to the operating room on the date of admission. She had an uncomplicated anterior total hip. She was transferred to the floor. She was weightbearing as tolerated. Hemoglobin after surgery was greater than 10. She is placed back on Eliquis at 2.5 mg twice daily. She will be discharged on that medication but then after 1 week increase to her regular dosage. Discharge diet is regular. She is weightbearing as tolerated. No dressing change. Pt Condition on Discharge: Good Discharge Disposition: Discharge to SNF Discharge Instructions Diet Instructions: As Tolerated, No Restrictions Activities You Can Perform: Weight Bearing as [place] Activities to Avoid: Strenuous Activity Additional Activity Instruc.: ZARIA protocol Alex Gonzalez MD September 29, 2017 07:36
[2017-09-29 12:00] VITALS: BP 101/67; PULSE 79; RESP 17; TEMP 98; O2SAT 98
== END 2017-09-29 16:22 | DRG 470 ==
LOC: HSDI 06:23 → N06A 15:25
PROVIDERS: ADMIT Orthopaedic Surgery Orthopaedic Surgery of the Spine; ATTEND Orthopaedic Surgery Orthopaedic Surgery of the Spine
PROC: 0SRB03Z Replacement of Left Hip Joint with Ceramic Synthetic Substitute, Open Approach (ICD-10-PCS; principal; 2017-09-26 09:12)
DX: M87.052 Idiopathic aseptic necrosis of left femur (principal); M16.12 Unilateral primary osteoarthritis, left hip; M87.051 Idiopathic aseptic necrosis of right femur; Q65.89 Other specified congenital deformities of hip; Z86.73 Personal history of transient ischemic attack (TIA), and cerebral infarction without residual deficits
CPT/HCPCS: 73502; 76000; 85014; 85018; 86850; 86900; 86901; 94150; C1776; C9290; J0690; J1170; J1580; J1885; J2250; J2270; J2405; J2710; J3010; J3370; J7120

== ENCOUNTER 2017-12-03 14:11 | Inpatient (IN) ==
[2017-12-03] MEDS ORDERED: Sodium Chlor 0.9% Inj 500 ML IV.SIG ONE (14:46)
[2017-12-03] MEDS ORDERED: Piperacil/Tazo 3.375 GM Premix 50 ML IV.SIG ONE (14:46)
[2017-12-03] MEDS ORDERED: Morphine Inj 4 MG/ML Vial IV.PUSH ONE (14:46)
[2017-12-03] MEDS ORDERED: Vancomycin Inj 1 GM/200 ML PIGGYBACK IV.SIG ONE (14:46)
[2017-12-03] MEDS ORDERED: Vancomycin Inj 1,000 MG in Sodium Chlor 0.9% Inj 250 ML IV.SIG ONE (15:00)
--- NOTE | 2017-12-03 15:07 | ED ---
HPI General Chief complaint: Medical Clearance Stated complaint: Neuro Time Seen by Provider: 12/03/17 14:34 Source: patient Mode of arrival: wheelchair Limitations: no limitations History of Present Illness HPI narrative: 47 yo female here for reevaluation of left foot infection. has had it for about a week now. Per patient started like an ingrown nail, developed redness and swelling. Seen by PCP and here. Started on bactrim. Told to follow up with [facility] Therapist. Seeing one tomorrow but symptoms worsened and patient decided to come here. Per family and patient redness and "darkening" of the skin has worsened and spreading to the other toes. No numbness, tingling, weakness. Patient is wheelchair bound seconary to CVA in her younger age. History of antiphospholipid syndrome, lupus and fibromyalgia. No urinary or BM issues. No other complains. Pain is 7/10. Taking her own pain meds with minimal relief. No other complains. Related Data Home Medications Medication Instructions Recorded Confirmed Hair, Skin, Nails with Biotin 2,500 mcg PO DAILY 12/01/17 12/03/17 amitriptyline 25 mg PO TID 12/01/17 12/03/17 apixaban [Eliquis] 5 mg PO BID 12/01/17 12/03/17 atorvastatin 80 mg PO DAILY 12/01/17 12/03/17 calcitriol 0.25 mcg PO DAILY 12/01/17 12/03/17 celecoxib 100 mg PO BID 12/01/17 12/03/17 fluoxetine 40 mg PO DAILY 12/01/17 12/03/17 metoprolol tartrate 50 mg PO BID 12/01/17 12/03/17 montelukast 10 mg PO QPM 12/01/17 12/03/17 mycophenolate mofetil 500 mg PO BID 12/01/17 12/03/17 omeprazole 40 mg PO DAILY 12/01/17 12/03/17 oxybutynin chloride 5 mg PO BID 12/01/17 12/03/17 spironolactone 25 mg PO DAILY 12/01/17 12/03/17 tizanidine 4 mg PO TID PRN 12/01/17 12/03/17 Previous Rx's Medication Instructions Recorded sulfamethoxazole-trimethoprim 1 tab PO Q12H #14 tab 12/01/17 [Bactrim DS] tramadol-acetaminophen 1 tab PO Q6H PRN #7 tab 12/01/17 Allergies Allergy/AdvReac Type Severity Reaction Status Date / Time No Known Allergies Allergy Unverified 12/03/17 14:39 Review of Systems ROS Unobtainable All other systems reviewed negative except as stated in HPI [facility] Medical History Medical History Antiphospholipid antibody syndrome (Acute) CVA (cerebral vascular accident) (Acute) Fibromyalgia (Acute) Hypertension (Acute) Lupus (Acute) Surgical History Surgical History H/O removal of cyst (Acute) H/O tubal ligation (Acute) History of hip surgery (Acute) Hx of prior ablation treatment (Acute) Social History Social History Substance History: Active Abuse Second Hand Smoke Exposure: Yes Smoking Status: Current some day smoker Tobacco Type: Cigarettes How Often Do You Have a Drink Containing Alcohol: Never Recent Travel in [facility] within the Last 8 Weeks: No Recent Out of Country Travel within the Last 8 Weeks: No Substance Abuse Detail Marijuana: Substance Use Status: Active Route Used Substance Abuse: By Mouth Immunization History Tetanus Immunization: <5 Years Hx Influenza Vaccine This Season: Yes Exam Narrative Exam Narrative: GENERAL: Well-appearing SKIN: Focused skin assessment warm/dry. HEAD: Atraumatic. Normocephalic. EYES: Pupils equal and round. No scleral icterus. No injection or drainage. ENT: No nasal bleeding or discharge. Mucous membranes pink and moist. NECK: Trachea midline. No JVD. CARDIOVASCULAR: Regular rate and rhythm. No murmur appreciated. RESPIRATORY: No accessory muscle use. Clear to auscultation. Breath sounds equal bilaterally. GASTROINTESTINAL: Abdomen soft, non-tender, nondistended. Hepatic and splenic margins not palpable. MUSCULOSKELETAL: No obvious deformities. No clubbing. No cyanosis. No edema. Patient has full range of motion of all toes. Patient does have erythema and swelling as well as what appears to be darkening of the skin more bluish/red than actual black on the toes on the left foot. Mainly on the first and second but also noted on the third and fourth. Patient has erythema and swelling noted on the plantar aspect of both almost 1/3 of the foot. Patient also has similar discoloration on the dorsal aspect of the foot. 2+ pulses bilaterally both felt as well as with Doppler. Very tender to touch. Warm to touch. NEUROLOGICAL: Awake and alert. No obvious cranial nerve deficits. Motor grossly within normal limits. Normal speech. PSYCHIATRIC: Appropriate mood and affect; insight and judgment normal. Course Reevaluation(s) Reevaluation #1: Case discussed with Dr. Hernandez (hospitalist); patient requires inpatient admission for vascular surgery consultation, IV antibiotics, and close monitoring. Time: 16:15 Initial Documented Vital Signs Temperature 98.4 F 12/03/17 14:19 Pulse Rate 91 H 12/03/17 14:19 Respiratory Rate 18 12/03/17 14:19 Blood Pressure 184/107 H 12/03/17 14:19 Pulse Oximetry 98 12/03/17 14:19 Last Documented Vital Signs Temperature 98.4 F 12/03/17 14:19 Pulse Rate 87 12/03/17 15:25 Respiratory Rate 18 12/03/17 15:25 Blood Pressure 175/78 H 12/03/17 15:25 Pulse Oximetry 96 12/03/17 15:25 Medical Decision Making VASHTI Attestation VASHTI supervised visit: Yes Attestation: I was present with the physician's medical assistant cardiology during the management of this patient. I discussed the case with the advanced practitioner and agree with the findings and plan as documented in their note except as noted below. 47yF presenting with left foot wounds. The patient has a history of CVA and lupus. She noticed a wound to her left 1st digit over a week ago, was seen in our department 2 days ago and started on bactrim. She reports that since then, she's noticed discoloration of her toes and spread of the wound to the 2nd digit. Admits to tactile fevers/ chills and nausea. No history of skin infections or MRSA in the past. Well-appearing, no acute distress NCAT, PERRL RRR CTAB Abd soft, non-tender, no guarding or rebound Left lower extremity warm to mid-calf, toes and dorsum of left foot cool, dusky , delayed capillary refill. Faint monophasic doppler signal noted at dorsalis pedis, unable to get signal at posterior tibial. Palpable popliteal pulse. Sensation diminished to all toes. Plan: 47yF presenting with left toe infection/ ischemia Labs X-ray left foot to r/o bony destruction Antibiotics BUN/ creat too elevated for CT angio, patient likely need lower extremity arterial duplex Stat vascular surgery consult-- OMKAR Brown spoke with Dr. Fletcher, who will see the patient Case discussed with Dr. Hernandez of internal medicine service MDM Narrative Medical decision making narrative: 47 yo female here for evaluation of left foot infection. Properly examined and found to have worsening cellulitis of foot. Patient has failed outpatient treatment. Will do labs, imaging, meds. Started on IV antibiotics and pain meds. Will require admission for podiatry consult and IV antibiotics. Labs and imaging showed no obvious sign of acute disease. Deafly concern for infection versus vascular issue. At this time accommodations for admission. My attending evaluated the patient agrees with plan. Case was discussed by myself with Dr. Fletcher who will come here and evaluate the patient to decide whether CT scan recommended versus treatment by him. My attending spoke with the admitting physician for agrees to admission to his service. Differential Diagnosis Differential Diagnosis: Failed outpatient treatment versus cellulitis versus abscess versus osteomyelitis Medical Records Medical records reviewed: Yes I reviewed the patient's medical records. Lab Data Lab results reviewed: Yes I reviewed the patient's lab results. Result diagrams: 12/03/17 15:01 12/03/17 15:01 Lab Results 12/03/17 12/03/17 12/03/17 Range/Units 15:00 15:01 15:01 WBC 8.5 (4.0-11.0) th/mm3 RBC 4.55 (4.00-5.30) mil/mm3 Hgb 13.5 (11.6-15.3) gm/dL Hct 40.3 (35.0-46.0) % MCV 88.6 (80.0-100.0) fL MCH 29.7 (27.0-34.0) pg MCHC 33.5 (32.0-36.0) % RDW 13.7 (11.6-17.2) % Plt Count 200 (150-450) th/mm3 MPV 9.5 (7.0-11.0) fL Neut % (Auto) 78.3 H (16.0-70.0) % Lymph % (Auto) 11.2 (9.0-44.0) % Twiggs % (Auto) 8.3 H (0.0-8.0) % Eos % (Auto) 1.8 (0.0-4.0) % Baso % (Auto) 0.4 (0.0-2.0) % Neut # (Auto) 6.7 (1.8-7.7) th/mm3 Lymph # (Auto) 0.9 L (1.0-4.8) th/mm3 Twiggs # (Auto) 0.7 (0.0-0.9) th/mm3 Eos # (Auto) 0.1 (0.0-0.4) th/mm3 Baso # (Auto) 0.0 (0.0-0.2) th/mm3 WBC Differential . Differential Comment Auto diff final Sodium 140 (136-145) meq/L Potassium 4.4 (3.5-5.1) meq/L Chloride 104 (98-107) meq/L Carbon Dioxide 25.7 (21.0-32.0) meq/L Anion Gap 10 (5-15) meq/L BUN 19 H (7-18) mg/dL Creatinine 1.34 H (0.50-1.00) mg/dL Estimated GFR 43 L (>89) mL/min Random Glucose 97 (74-106) mg/dL Lactic Acid 1.1 (0.4-2.0) mmol/L Calcium 8.8 (8.5-10.1) mg/dL Total Bilirubin 0.2 (0.2-1.0) mg/dL AST 16 (15-37) U/L ALT 31 (10-53) U/L Alkaline Phosphatase 171 H (45-117) U/L Total Protein 7.5 (6.4-8.2) g/dL Albumin 3.7 (3.4-5.0) g/dL Imaging Data Attestation: I personally reviewed and interpreted this imaging study as follows : Radiologist's impression: Foot X-Ray 12/03/17 14:44 CONCLUSION: No plain film findings of osteomyelitis. If there is necessity for further evaluation contrast-enhanced MRI is recommended. Discharge Plan Discharge Disposition Patient Disposition: 30 Still Patient Discharge Details Diagnosis: Cellulitis of foot, Vascular abnormality Physicians Team ED Provider: Ringhauser,Isabel ED Midlevel Provider: Dylon Brown Primary Care Provider: Mariela Devries Attending Provider: Kalpesh Hernandez Other Providers: Zechariah Fletcher ; Isreal Melchor Status ED Status: Admitted Patient
[2017-12-03 15:19] LABS: Baso % (Auto) 0.4 % (0.0-2.0); Eos # (Auto) 0.1 th/mm3 (0.0-0.4); Eos % (Auto) 1.8 % (0.0-4.0); Hematocrit 40.3 % (35.0-46.0); Hemoglobin 13.5 gm/dL (11.6-15.3); Lymph # (Auto) 0.9 th/mm3 (1.0-4.8); Lymph % (Auto) 11.2 % (9.0-44.0); Mean Corpuscular HGB Conc 33.5 % (32.0-36.0); Mean Corpuscular Hemoglobin 29.7 pg (27.0-34.0); Mean Corpuscular Volume 88.6 fL (80.0-100.0); Mean Platelet Volume 9.5 fL (7.0-11.0); Mono # (Auto) 0.7 th/mm3 (0.0-0.9); Mono % (Auto) 8.3 % (0.0-8.0); Neut # (Auto) 6.7 th/mm3 (1.8-7.7); Neut % (Auto) 78.3 % (16.0-70.0); Platelet Count 200 th/mm3 (150-450); Red Blood Count 4.55 mil/mm3 (4.00-5.30); Red Cell Distribution Width 13.7 % (11.6-17.2); White Blood Count 8.5 th/mm3 (4.0-11.0)
[2017-12-03 15:43] LABS: Alanine Aminotransferase 31 U/L (10-53); Albumin 3.7 g/dL (3.4-5.0); Anion Gap 10 meq/L (5-15); Aspartate Aminotransferase 16 U/L (15-37); Blood Urea Nitrogen 19 mg/dL (7-18); Calcium 8.8 mg/dL (8.5-10.1); Carbon Dioxide 25.7 meq/L (21.0-32.0); Chloride 104 meq/L (98-107); Glomerular Filtration Rate 43 mL/min (>89); Glucose,Random 97 mg/dL (74-106); Potassium 4.4 meq/L (3.5-5.1); Sodium 140 meq/L (136-145)
[2017-12-03 15:45] LABS: Alkaline Phosphatase 171 U/L (45-117); Total Protein 7.5 g/dL (6.4-8.2)
--- NOTE | 2017-12-03 16:18 | XR ---
EXAM DATE: 12/03/2017 3:27 PM EDT AGE/SEX: 47 years / Female INDICATIONS: Inflammation, swelling and open wound on left foot, first and second digits. CLINICAL DATA: This is the patient's initial encounter. Patient reports that signs and symptoms have been present for 3 days and indicates a pain score of 10/10. MEDICAL/SURGICAL HISTORY: None. None. COMPARISON: [facility], XR toe LT great toe min2V, 12/01/2017. . FINDINGS: Bony structures are intact and in normal alignment. Osseous density is normal. Soft tissues are unre markable. No radiopaque foreign bodies seen. There is no bony destruction or periosteal reaction t o suggest osteomyelitis. CONCLUSION: No plain film findings of osteomyelitis. If there is necessity for further evaluation contrast-enhanc ed MRI is recommended. Electronically signed by: Lavell De Jesus MD 12/03/2017 4:16 PM EDT
[2017-12-03] MEDS ORDERED: Temazepam 15 MG Capsule PO PRN (16:40)
[2017-12-03] MEDS ORDERED: Bisacodyl 10 MG Supp RECTAL PRN (16:40)
[2017-12-03] MEDS ORDERED: Acetaminophen 325 MG Tablet PO PRN ×2 (16:40→16:47)
[2017-12-03] MEDS ORDERED: Morphine Inj 4 MG/ML Vial IV.PUSH PRN (16:47)
[2017-12-03] MEDS ORDERED: Morphine Sulfate Inj 2 MG/ML Vial IV.PUSH PRN (16:47)
[2017-12-03] MEDS ORDERED: Naloxone Inj 0.4 MG/ML Vial IV.PUSH PRN (16:47)
[2017-12-03] MEDS ORDERED: Vancomycin Consult Pharmacy 1 EACH OTHER SCH (17:00)
[2017-12-03] MEDS: Sod Chloride 0.9% Inj 1,000 ML IV.CONT SCH ×2 (17:00→22:54)
--- NOTE | 2017-12-03 17:06 | P.HPIM ---
History of Present Illness Service: [facility] Primary Care Physician: Mariela Devries DO Chief Complaint: LEFT GREAT TOE AND 2ND TOE INFECTION History of Present Illness: Patient is a 47-year-old female who presents for left great toe and second toe foot infection that has been going on for at least a week. Patient states it started like an ingrown nail. Then developed redness and swelling. She was seen by her primary care physician and here a couple days ago. Was started on Bactrim. Was told to follow-up with sand polisher. Was supposed to see one tomorrow but symptoms worsened patient decided to come here. Patient has had redness and "darkening of the skin and has worsening and spreading to the other toes. Denies any numbness or tingling or weakness is wheelchair-bound secondary to CVA in a younger age has history of antiphospholipid antibody syndrome, lupus and fibromyalgia denies any issues of urine or bone marrow issues. Pain was 7 out of 10 Seen in the emergency department. Started on antibiotics. Noted to have decreased pulses in the left lower extremity. Vascular has been consult and will consult podiatry also. We will continue on antibiotics will get an echocardiogram and carotid Doppler Past medical history is significant for antiphospholipid antibody syndrome history of CVA history of fibromyalgia hypertension and lupus Patient was noted to be scheduled for surgery on a hip in the next few days - Diagnosis (1) Lupus (systemic lupus erythematosus) (2) Antiphospholipid antibody with hypercoagulable state (3) CVA (cerebral vascular accident) (4) Fibromyalgia (5) Hypertension (6) Cellulitis of foot (7) Vascular abnormality Inpatient Certification: I certify that the inpatient services were ordered in accordance with Medicare regulations governing the order. This includes certification that hospital inpatient services are reasonable and necessary and in the case of services not specified as inpatient-only under 42 CFR 419.22(n), that they are appropriately provided as inpatient services in accordance to with the 2-midnight benchmark under 43 CFR 412.3(e) Estimated Total Length of Stay (Days): 4 Plans for Post Hospital Care: Not yet determined Review of Systems All other systems reviewed negative except as stated in HPI Constitutional: Reports body ache(s), Denies anorexia Eyes: Denies blind spots, Denies blurry vision Ears, Nose, Mouth, and Throat: Denies abnormal hearing, Denies dental pain, Denies ear pain, Denies lip swelling Cardiovascular: Denies chest pain, Denies excessive sweating, Denies generalized swelling Respiratory: Denies change in phlegm color, Denies excessive phlegm production, Denies shortness of breath Gastrointestinal: Denies abdominal pain, Denies feeling full early, Denies heartburn Musculoskeletal: Reports abnormal walking, Reports decreased muscle mass, Reports limited joint movement, Reports muscle weakness, Reports numbness, Reports stiffness, Reports tingling (And left lower extremity) Skin/Breast: Reports redness (And left lower extremity toes 2 and 1) Neurologic: Reports abnormal walking, Reports localized weakness, Reports tingling/numbness/burning sensations, Reports unsteadiness, Reports weakness, Denies abnormal hearing PMFSH - History History Provided By: Patient, Family Member - Medical History Medical History: Medical History (Last Reviewed 12/03/17 @ 15:04 by OMKAR Maher) Hypertension Antiphospholipid antibody syndrome CVA (cerebral vascular accident) Fibromyalgia Lupus - Surgical History Surgical History: Surgical History (Last Reviewed 12/03/17 @ 15:04 by OMKAR Maher) H/O removal of cyst H/O tubal ligation Hx of prior ablation treatment History of hip surgery - Tobacco History Second Hand Smoke Exposure: Yes Tobacco Use In Past 30 Days: Yes Smoking Status: Current some day smoker Tobacco Type: Cigarettes - Alcohol History How Often Do You Have a Drink Containing Alcohol: Never - Substance Use History Substance History: Active Abuse - Substance Use Type Marijuana Status: Active Route Used: By Mouth - Travel History Recent Travel in the [place] Within the Last 8 Weeks: No Recent Travel Out of the Country Within the Last 8 Weeks: No - Immunization History Tetanus Immunization: <5 Years Hx Influenza Vaccine This Season: Yes Medications and Allergies Active Medications: Active Medications Acetaminophen (Tylenol) 650 mg PO Q4H PRN PRN Reason: Temp > 100.4 Acetaminophen (Tylenol) 650 mg PO Q6HR PRN PRN Reason: PAIN SCALE 1 TO 2 Al Hydroxide/Mg Hydroxide (Milk Of Magnesia Liq) 30 ml PO Q12H PRN PRN Reason: Mild Constipation Amitriptyline HCl (Elavil) 25 mg PO TID [facility] Apixaban (Eliquis) 5 mg PO BID [facility] Atorvastatin Calcium (Lipitor) 80 mg PO DAILY [facility] Bisacodyl (Dulcolax Supp) 10 mg RECTAL DAILY PRN PRN Reason: SEVERE CONSITIPATION Calcitriol (Rocaltrol) 0.25 mcg PO DAILY [facility] Celecoxib (Celebrex) 100 mg PO BID [facility] Sodium Chloride (Ns Inj) 1,000 mls @ 100 mls/hr IV.CONT .Q10H [facility] Pharmacy Profile Note (Vancomycin Consult Pharmacy) 0 mls @ 0 mls/hr OTHER UNSCH [facility] Piperacillin/Tazobactam/Dextrose (Zosyn 3.375 Gm Premix) 50 mls @ 100 mls/hr IV.SIG Q8H [facility] Lactulose (Lactulose Liq) 30 ml PO DAILY PRN PRN Reason: SEVERE CONSITIPATION Metoprolol Tartrate (Lopressor) 50 mg PO BID [facility] Montelukast Sodium (Singulair) 10 mg PO QPM [facility] Morphine Sulfate (Morphine Inj) 2 mg IV.PUSH Q3H PRN PRN Reason: PAIN 3-5; IF UABLE TO TAKE PO Morphine Sulfate (Morphine Inj) 4 mg IV.PUSH Q3H PRN PRN Reason: PAIN 6-10;IF UNABLE TO TAKE PO Morphine Sulfate (Morphine Inj) 4 mg IV.PUSH Q3H PRN PRN Reason: BREAKTHROUGH PAIN Mycophenolate Mofetil (Cellcept) 500 mg PO BID [facility] Naloxone HCl (Narcan Inj) 0.4 mg IV.PUSH UNSCH PRN PRN Reason: SEE LABEL COMMENTS Non-Formulary Medication (Fluoxetine [Fluoxetine]) 40 mg PO DAILY [facility] Non-Formulary Medication (Hair, Skin, Nails With Biotin) 2,500 mcg PO DAILY [facility] Non-Formulary Medication (Omeprazole [Omeprazole]) 40 mg PO DAILY [facility] Non-Formulary Medication (Tizanidine [Tizanidine]) 4 mg PO TID PRN PRN Reason: Pain Ondansetron HCl (Zofran Inj) 4 mg IV.PUSH Q6H PRN PRN Reason: NAUSEA OR VOMITING Oxybutynin Chloride (Ditropan) 5 mg PO BID [facility] Oxycodone/Acetaminophen (Percocet 10/325 Mg) 1 tab PO Q6H PRN PRN Reason: PAIN SCALE 6 TO 10 Oxycodone/Acetaminophen (Percocet 5/325 Mg) 1 tab PO Q6H PRN PRN Reason: PAIN SCALE 3 TO 5 Senna/Docusate Sodium (Margie-Colace) 1 tab PO BID [facility] Sennosides (Senokot) 17.2 mg PO Q12H PRN PRN Reason: Moderate Constipation Spironolactone (Aldactone) 25 mg PO DAILY [facility] Temazepam (Restoril) 15 mg PO HS PRN PRN Reason: INSOMNIA Allergies Allergy/AdvReac Type Severity Reaction Status Date / Time No Known Allergies Allergy Unverified 12/03/17 14:39 Home Medications Medication Instructions Recorded Confirmed Type Hair, Skin, Nails with Biotin 2,500 mcg PO DAILY 12/01/17 12/03/17 History amitriptyline 25 mg PO TID 12/01/17 12/03/17 History apixaban [Eliquis] 5 mg PO BID 12/01/17 12/03/17 History atorvastatin 80 mg PO DAILY 12/01/17 12/03/17 History calcitriol 0.25 mcg PO DAILY 12/01/17 12/03/17 History celecoxib 100 mg PO BID 12/01/17 12/03/17 History fluoxetine 40 mg PO DAILY 12/01/17 12/03/17 History metoprolol tartrate 50 mg PO BID 12/01/17 12/03/17 History montelukast 10 mg PO QPM 12/01/17 12/03/17 History mycophenolate mofetil 500 mg PO BID 12/01/17 12/03/17 History omeprazole 40 mg PO DAILY 12/01/17 12/03/17 History oxybutynin chloride 5 mg PO BID 12/01/17 12/03/17 History spironolactone 25 mg PO DAILY 12/01/17 12/03/17 History tizanidine 4 mg PO TID PRN 12/01/17 12/03/17 History Exam Vital signs: Vital Signs 12/03/17 14:19 12/03/17 14:37 12/03/17 15:25 Temperature 98.4 F Pulse Rate 91 H 82 87 Respiratory Rate 18 18 18 Blood Pressure 184/107 H 196/111 H 175/78 H Pulse Oximetry 98 99 96 Intake & Output 12/02/17 12/03/17 12/03/17 18:59 06:59 18:59 Intake Total 550 / 550 Balance 550 / 550 Weight 113.398 kg Intake: IV 550 / 550 Zosyn 3.375 GM Premix 50 ML @ 50 / 50 100 mls/hr IV.SIG ONCE ONE Rx#: [id number] NS Inj 500 ML @ Wide Open IV. 500 / 500 SIG BOLUS ONE Rx#:[id number] Narrative: GENERAL: Awake alert and oriented 3 talkative and cooperative has some degree of aphasia SKIN: Warm and dry. HEAD: Atraumatic. Normocephalic. EYES: Pupils equal and round. No scleral icterus. No injection or drainage. ENT: No nasal bleeding or discharge. Mucous membranes pink and moist. NECK: Trachea midline. No JVD. CARDIOVASCULAR: Regular rate and rhythm. S1-S2 no S3 or S4 no heave or thrill or rub or gallop RESPIRATORY: No accessory muscle use. Clear to auscultation. Breath sounds equal bilaterally. GASTROINTESTINAL: Abdomen soft, non-tender, nondistended. Hepatic and splenic margins not palpable. Obese MUSCULOSKELETAL: Extremities without clubbing, cyanosis, or edema. No obvious deformities. Darkening of the skin of the first and second toes with black on the toes of left foot first and second some mild discoloration on third and fourth in comparison to the other 2 has erythema and swelling including about a third of the foot and on the dorsal aspect of the foot decreased pedal pulses decreased temperature compared to the right side NEUROLOGICAL: Awake and alert. No obvious cranial nerve deficits. Motor grossly within normal limits. Five out of 5 muscle strength in the arms and legs. Normal speech. Left side sensation is much stronger than the right side sensation right side sensation is very limited PSYCHIATRIC: Appropriate mood and affect; insight and judgment normal. Results - Labs CBC & Chem 7: 12/03/17 15:01 12/03/17 15:01 Labs: Short CBC 12/03/17 Range/Units 15:01 WBC 8.5 (4.0-11.0) th/mm3 Hgb 13.5 (11.6-15.3) gm/dL Hct 40.3 (35.0-46.0) % Plt Count 200 (150-450) th/mm3 BMP 12/03/17 15:01 Sodium 140 Potassium 4.4 Chloride 104 Carbon Dioxide 25.7 BUN 19 H Creatinine 1.34 H Calcium 8.8 Liver Function 12/03/17 Range/Units 15:01 Total Bilirubin 0.2 (0.2-1.0) mg/dL AST 16 (15-37) U/L ALT 31 (10-53) U/L Alkaline Phosphatase 171 H (45-117) U/L Albumin 3.7 (3.4-5.0) g/dL - Imaging Impressions Foot X-Ray 12/03/17 14:44 CONCLUSION: No plain film findings of osteomyelitis. If there is necessity for further evaluation contrast-enhanced MRI is recommended. Caprini VTE Risk Assessment Caprini VTE Risk Assessment: Moderate/High Risk (score >= 2) Caprini Risk Assessment Model: Point Value = 1 Point Value = 2 Point Value = 3 Point Value = 5 Age 41-60 Minor surgery BMI > 25 kg/m2 Swollen legs Varicose veins or History of unexplained or recurrent spontaneous Oral contraceptives or hormone replacement Sepsis (< 1 month) Serious lung disease, including pneumonia (< 1 month) Abnormal pulmonary function Acute myocardial infarction Congestive heart failure (< 1 month) History of inflammatory bowel disease Medical patient at bed rest Age 61-74 Arthroscopic surgery Major open surgery (> 45 min) Laparoscopic surgery (> 45 min) Malignancy Confined to bed (> 72 hours) Immobilizing plaster cast Central venous access Age >= 75 History of VTE Family history of VTE Factor V Leiden Prothrombin [id number] Lupus anticoagulant Anticardiolipin antibodies Elevated serum homocysteine Heparin-induced thrombocytopenia Other congenital or acquired thrombophilia Stroke (< 1 month) Elective arthroplasty Hip, pelvis, or leg fracture Acute spinal cord injury (< 1 month) Prophylaxis Regimen: Total Risk Factor Score Risk Level Prophylaxis Regimen 0-1 Low Early ambulation 2 Moderate Order ONE of the following: *Sequential Compression Device (SCD) *Heparin 5000 units SQ BID 3-4 Higher Order ONE of the following medications: *Heparin 5000 units SQ TID *Enoxaparin/Lovenox 40 mg SQ daily (WT < 150 kg, CrCl > 30 mL/min) *Enoxaparin/Lovenox 30 mg SQ daily (WT < 150 kg, CrCl > 10-29 mL/min) *Enoxaparin/Lovenox 30 mg SQ BID (WT < 150 kg, CrCl > 30 mL/min) AND/OR *Sequential Compression Device (SCD) 5 or more Highest Order ONE of the following medications: *Heparin 5000 units SQ TID (Preferred with Epidurals) *Enoxaparin/Lovenox 40 mg SQ daily (WT < 150 kg, CrCl > 30 mL/min) *Enoxaparin/Lovenox 30 mg SQ daily (WT < 150 kg, CrCl > 10-29 mL/min) *Enoxaparin/Lovenox 30 mg SQ BID (WT < 150 kg, CrCl > 30 mL/min) AND *Sequential Compression Device (SCD) Assessment and Plan - Assessment (1) Lupus (systemic lupus erythematosus) Code(s): M32.9 - Systemic lupus erythematosus, unspecified Status: Chronic (2) Antiphospholipid antibody with hypercoagulable state Code(s): D68.61 - Antiphospholipid syndrome Status: Chronic (3) CVA (cerebral vascular accident) Code(s): I63.9 - Cerebral infarction, unspecified Status: Chronic (4) Fibromyalgia Code(s): M79.7 - Fibromyalgia Status: Chronic (5) Hypertension Code(s): I10 - Essential (primary) hypertension Status: Chronic (6) Cellulitis of foot Code(s): L03.119 - Cellulitis of unspecified part of limb Status: Acute (7) Vascular abnormality Code(s): I99.9 - Unspecified disorder of circulatory system Status: Acute - Plan Cellulitis of left foot and/or gangrene of the left first and second toes and decreased pedal pulses -We will consult vascular surgery -We will consult podiatry Continue on antibiotics with [place] Consult pharmacy for vancomycin dosing Pain control Vascular issues rule out acute versus chronic consult vascular of the left foot first and second toes Obesity weight loss recommended Antiphospholipid antibody syndrome continue on chronic Eliquis History of CVA continue physical therapy occupational therapy Fibromyalgia continue on pain control Hypertension resume home medications Lupus continue on CellCept We will get a.m. labs May need infectious disease consult depending on what it looks like tomorrow and labs look like tomorrow Continue pain control Cardiac diet Code Status: Full code Discussed Condition With: RN and patient and family and emergency room physician Discharge Planning: Pending clearance by podiatry and vascular surgery
[2017-12-03] MEDS: oxyCODONE/Acetaminophen 10/325 Tablet PO PRN ×2 (17:09→22:51)
[2017-12-03 17:37] LABS: Creatine Kinase 42 U/L (26-192)
--- NOTE | 2017-12-03 18:13 | US ---
EXAM DATE: 12/03/2017 6:09 PM EDT AGE/SEX: 47 years / Female INDICATIONS: Syncope. CLINICAL DATA: This is the patient's initial encounter. Patient reports that signs and symptoms have been present for 1 day and indicates a pain score of 0/10. MEDICAL/SURGICAL HISTORY: Hypertension. Lupus. Antiphospholipid antibody syndrome. Cerebral va scular accident. Fibromyalgia. Tubal ligation. Cyst removal. Hip surgery. COMPARISON: No prior exams available for comparison. VELOCITY PARAMETERS: ICA/CCA Ratio: Right 1.0 , Left 0.7 ICA: Right 64 cm/sec, Left 76 cm/sec CCA: Right 66 cm/sec, Left 108 cm/sec ECA: Right 67 cm/sec, Left 70 cm/sec Vertebral: Right 34 cm/sec antegrade, Left 63 cm/sec antegrade FINDINGS: Right Carotid: No significant plaque is visualized.The waveforms are within normal limits. Left Carotid: No significant plaque is visualized. The waveforms are within normal limits. Other: None. CONCLUSION: Negative carotid ultrasound examination. Electronically signed by: Sigifredo Rosado MD 12/03/2017 6:11 PM EDT
[2017-12-03] MEDS: Montelukast 10 MG Tablet PO SCH (20:23)
[2017-12-03] MEDS: Amitriptyline 25 MG Tablet PO SCH (20:23)
[2017-12-03] MEDS: Celecoxib 100 MG Capsule PO SCH (20:23)
[2017-12-03] MEDS: Famotidine 20 MG Tablet PO SCH (20:24)
[2017-12-03] MEDS: Senna/Docusate Sodium 8.6/50 MG Tablet PO SCH (20:24)
[2017-12-03] MEDS: Metoprolol Tartrate 50 MG Tablet PO SCH (20:24)
[2017-12-03] MEDS: Morphine Inj 4 MG/ML Vial IV.PUSH PRN (20:25)
[2017-12-03 22:46] LABS: Troponin I 0.02 ng/mL (0.02-0.05)
[2017-12-03] MEDS: Piperacil/Tazo 3.375 GM Premix 50 ML IV.SIG SCH (23:12)
[2017-12-04] MEDS: Sod Chloride 0.9% Inj 1,000 ML IV.CONT SCH ×2 (02:43→12:29)
[2017-12-04] MEDS: Vancomycin Inj 1,750 MG in Sodium Chlor 0.9% Inj 500 ML IV.SIG SCH (05:07)
[2017-12-04] MEDS: oxyCODONE/Acetaminophen 10/325 Tablet PO PRN ×2 (06:01→12:29)
[2017-12-04] MEDS ORDERED: BIOTIN PO SCH (09:00)
[2017-12-04] MEDS ORDERED: HAIR PO SCH (09:00)
[2017-12-04] MEDS ORDERED: [UNRECOGNIZED DRUG - OTHER] PO SCH (09:00)
[2017-12-04] MEDS ORDERED: SKIN PO SCH (09:00)
[2017-12-04] MEDS ORDERED: FLUOXETINE 40 MG PO SCH (09:00)
[2017-12-04 09:02] LABS: Baso % (Auto) 0.6 % (0.0-2.0); Eos # (Auto) 0.1 th/mm3 (0.0-0.4); Eos % (Auto) 2.5 % (0.0-4.0); Hematocrit 31.7 % (35.0-46.0); Hemoglobin 10.5 gm/dL (11.6-15.3); Lymph # (Auto) 1.1 th/mm3 (1.0-4.8); Mean Corpuscular Hemoglobin 29.9 pg (27.0-34.0); Mean Corpuscular Volume 90.6 fL (80.0-100.0); Mean Platelet Volume 9.5 fL (7.0-11.0); Mono # (Auto) 0.6 th/mm3 (0.0-0.9); Neut # (Auto) 3.8 th/mm3 (1.8-7.7); Neut % (Auto) 66.9 % (16.0-70.0); Platelet Count 134 th/mm3 (150-450); Red Cell Distribution Width 13.9 % (11.6-17.2); White Blood Count 5.7 th/mm3 (4.0-11.0)
[2017-12-04] MEDS: Piperacil/Tazo 3.375 GM Premix 50 ML IV.SIG SCH ×2 (09:15→15:54)
[2017-12-04] MEDS: FLUoxetine 20 MG Capsule PO SCH (09:22)
[2017-12-04] MEDS: Senna/Docusate Sodium 8.6/50 MG Tablet PO SCH ×2 (09:22→20:24)
[2017-12-04] MEDS: Calcitriol 0.25 MCG Capsule PO SCH (09:23)
[2017-12-04] MEDS: Amitriptyline 25 MG Tablet PO SCH ×3 (09:23→18:25)
[2017-12-04] MEDS: Metoprolol Tartrate 50 MG Tablet PO SCH ×2 (09:23→20:21)
[2017-12-04] MEDS: Famotidine 20 MG Tablet PO SCH ×2 (09:23→20:20)
[2017-12-04] MEDS: Spironolactone 25 MG Tablet PO SCH (09:23)
[2017-12-04] MEDS: Celecoxib 100 MG Capsule PO SCH ×2 (09:24→20:21)
--- NOTE | 2017-12-04 09:34 | P.CONPOD ---
History of Present Illness Service: Podiatric surgery Consult date: 12/04/17 Primary Care Provider: Mariela Devries DO Chief Complaint: LEFT GREAT TOE AND 2ND TOE INFECTION History of Present Illness: Patient is a 47-year-old female who presents for left great toe and second toe foot infection that has been going on for at least a week. Patient states it started like an ingrown nail. Then developed redness and swelling. She was seen by her primary care physician and here a couple days ago. Was started on Bactrim. Was told to follow-up with bioanalyst. Was supposed to see one tomorrow but symptoms worsened patient decided to come here. Patient has had redness and "darkening of the skin and has worsening and spreading to the other toes. Denies any numbness or tingling or weakness is wheelchair-bound secondary to CVA in a younger age has history of antiphospholipid antibody syndrome, lupus and fibromyalgia denies any issues of urine or bone marrow issues. Pain was 7 out of 10 Seen in the emergency department. Started on antibiotics. Noted to have decreased pulses in the left lower extremity. Vascular has been consult and will consult podiatry also. We will continue on antibiotics will get an echocardiogram and carotid Doppler Past medical history is significant for antiphospholipid antibody syndrome history of CVA history of fibromyalgia hypertension and lupus Patient was noted to be scheduled for surgery on a hip in the next few days- per admit team [facility] - History History Provided By: Patient, Medical Record - Medical History Medical History: Medical History (Last Reviewed 12/04/17 @ 00:13 by Tomasa Barrientos RN) Hypertension Antiphospholipid antibody syndrome CVA (cerebral vascular accident) Fibromyalgia Lupus - Surgical History Surgical History: Surgical History (Last Reviewed 12/04/17 @ 00:13 by Tomasa Barrientos RN) H/O removal of cyst H/O tubal ligation Hx of prior ablation treatment History of hip surgery - Tobacco History Second Hand Smoke Exposure: Yes Tobacco Use In Past 30 Days: Yes Smoking Status: Current every day smoker Tobacco Type: Cigarettes - Alcohol History How Often Do You Have a Drink Containing Alcohol: Never - Substance Use History Substance History: Active Abuse - Substance Use Type Marijuana Status: Active Route Used: Inhalation Comment: uses for pain - Travel History Recent Travel in the [place] Within the Last 8 Weeks: No Recent Travel Out of the Country Within the Last 8 Weeks: No - Immunization History Tetanus Immunization: <5 Years Hx Influenza Vaccine This Season: Yes Medications and Allergies Active Medications: Active Medications Acetaminophen (Tylenol) 650 mg PO Q4H PRN PRN Reason: Temp > 100.4 Acetaminophen (Tylenol) 650 mg PO Q6HR PRN PRN Reason: PAIN SCALE 1 TO 2 Al Hydroxide/Mg Hydroxide (Milk Of Magnesia Liq) 30 ml PO Q12H PRN PRN Reason: Mild Constipation Amitriptyline HCl (Elavil) 25 mg PO TID [facility] Last Admin: 12/03/17 20:23 Dose: 25 mg Apixaban (Eliquis) 5 mg PO BID [facility] Last Admin: 12/03/17 20:24 Dose: 5 mg Atorvastatin Calcium (Lipitor) 80 mg PO DAILY [facility] Bisacodyl (Dulcolax Supp) 10 mg RECTAL DAILY PRN PRN Reason: SEVERE CONSITIPATION Calcitriol (Rocaltrol) 0.25 mcg PO DAILY [facility] Celecoxib (Celebrex) 100 mg PO BID [facility] Last Admin: 12/03/17 20:23 Dose: 100 mg Famotidine (Pepcid) 10 mg PO BID [facility] Last Admin: 12/03/17 20:24 Dose: 10 mg Fluoxetine HCl (Prozac) 40 mg PO DAILY [facility] Sodium Chloride (Ns Inj) 1,000 mls @ 100 mls/hr IV.CONT .Q10H [facility] Last Admin: 12/04/17 02:43 Dose: Not Given Pharmacy Profile Note (Vancomycin Consult Pharmacy) 0 mls @ 0 mls/hr OTHER UNSCH [facility] Piperacillin/Tazobactam/Dextrose (Zosyn 3.375 Gm Premix) 50 mls @ 100 mls/hr IV.SIG Q8H [facility] Last Admin: 12/03/17 23:12 Dose: 100 mls/hr Vancomycin HCl 1,750 mg/ (Sodium Chloride) 517.5 mls @ 250 mls/hr IV.SIG Q24H [facility] Last Admin: 12/04/17 05:07 Dose: 250 mls/hr Lactulose (Lactulose Liq) 30 ml PO DAILY PRN PRN Reason: SEVERE CONSITIPATION Metoprolol Tartrate (Lopressor) 50 mg PO BID [facility] Last Admin: 12/03/17 20:24 Dose: 50 mg Miscellaneous (Pill Splitter) 1 each OTHER UNSCH [facility] Miscellaneous Information ([facility] Ordered Lab Info) 0 each OTHER ONCE ONE Stop: 12/06/17 05:46 Montelukast Sodium (Singulair) 10 mg PO QPM [facility] Last Admin: 12/03/17 20:23 Dose: 10 mg Morphine Sulfate (Morphine Inj) 2 mg IV.PUSH Q3H PRN PRN Reason: PAIN 3-5; IF UABLE TO TAKE PO Morphine Sulfate (Morphine Inj) 4 mg IV.PUSH Q3H PRN PRN Reason: PAIN 6-10;IF UNABLE TO TAKE PO Morphine Sulfate (Morphine Inj) 4 mg IV.PUSH Q3H PRN PRN Reason: BREAKTHROUGH PAIN Last Admin: 12/03/17 20:25 Dose: 4 mg Mycophenolate Mofetil (Cellcept) 500 mg PO BID [facility] Last Admin: 12/03/17 20:23 Dose: 500 mg Naloxone HCl (Narcan Inj) 0.4 mg IV.PUSH UNSCH PRN PRN Reason: SEE LABEL COMMENTS Nitroglycerin (Nitro-Bid 2% Oint) 1 inch TOPICAL Q8HR [facility] Ondansetron HCl (Zofran Inj) 4 mg IV.PUSH Q6H PRN PRN Reason: NAUSEA OR VOMITING Oxybutynin Chloride (Ditropan) 5 mg PO BID [facility] Last Admin: 12/03/17 20:24 Dose: 5 mg Oxycodone/Acetaminophen (Percocet 10/325 Mg) 1 tab PO Q6H PRN PRN Reason: PAIN SCALE 6 TO 10 Last Admin: 12/04/17 06:01 Dose: 1 tab Oxycodone/Acetaminophen (Percocet 5/325 Mg) 1 tab PO Q6H PRN PRN Reason: PAIN SCALE 3 TO 5 Pantoprazole Sodium (Protonix) 40 mg PO DAILY [facility] Pt:Hair,Skin, Nails (With Biotin 2500 Mg) 0 each PO DAILY [facility] Senna/Docusate Sodium (Margie-Colace) 1 tab PO BID [facility] Last Admin: 12/03/17 20:24 Dose: 1 tab Sennosides (Senokot) 17.2 mg PO Q12H PRN PRN Reason: Moderate Constipation Spironolactone (Aldactone) 25 mg PO DAILY [facility] Temazepam (Restoril) 15 mg PO HS PRN PRN Reason: INSOMNIA Tizanidine HCl (Zanaflex) 4 mg PO TID PRN PRN Reason: MUSCLE PAIN Allergies Allergy/AdvReac Type Severity Reaction Status Date / Time No Known Allergies Allergy Unverified 12/03/17 14:39 Home Medications Medication Instructions Recorded Confirmed Type Hair, Skin, Nails with Biotin 2,500 mcg PO DAILY 12/01/17 12/03/17 History amitriptyline 25 mg PO TID 12/01/17 12/03/17 History apixaban [Eliquis] 5 mg PO BID 12/01/17 12/03/17 History atorvastatin 80 mg PO DAILY 12/01/17 12/03/17 History calcitriol 0.25 mcg PO DAILY 12/01/17 12/03/17 History celecoxib 100 mg PO BID 12/01/17 12/03/17 History fluoxetine 40 mg PO DAILY 12/01/17 12/03/17 History metoprolol tartrate 50 mg PO BID 12/01/17 12/03/17 History montelukast 10 mg PO QPM 12/01/17 12/03/17 History mycophenolate mofetil 500 mg PO BID 12/01/17 12/03/17 History omeprazole 40 mg PO DAILY 12/01/17 12/03/17 History oxybutynin chloride 5 mg PO BID 12/01/17 12/03/17 History spironolactone 25 mg PO DAILY 12/01/17 12/03/17 History tizanidine 4 mg PO TID PRN 12/01/17 12/03/17 History Physical Exam Vital signs: Vital Signs 12/03/17 14:19 12/03/17 14:37 12/03/17 15:25 Temperature 98.4 F Pulse Rate 91 H 82 87 Respiratory Rate 18 18 18 Blood Pressure 184/107 H 196/111 H 175/78 H Pulse Oximetry 98 99 96 12/03/17 17:36 12/03/17 20:00 12/04/17 00:00 Temperature 98 F 97.3 F L Pulse Rate 87 79 76 Respiratory Rate 18 18 18 Blood Pressure 169/75 H 174/80 H 133/65 Pulse Oximetry 95 97 94 L 12/04/17 00:10 12/04/17 00:36 12/04/17 04:00 Temperature 97.1 F L Pulse Rate 81 76 Respiratory Rate 18 Blood Pressure 144/90 H Pulse Oximetry 97 97 12/04/17 09:10 12/04/17 09:13 Temperature Pulse Rate Respiratory Rate 20 Blood Pressure Pulse Oximetry 97 Intake & Output 12/03/17 12/04/17 12/04/17 18:59 06:59 18:59 Intake Total 800 / 800 1480 / 1480 Output Total 700 / 700 Balance 800 / 800 780 / 780 Weight 113.398 kg Intake: IV 800 / 800 1000 / 1000 NS Inj 1,000 ML @ 100 mls/hr IV 1000 / 1000 .CONT .Q10H [facility]ONSO Rx#:[id number] Zosyn 3.375 GM Premix 50 ML @ 50 / 50 100 mls/hr IV.SIG ONCE ONE Rx#: [id number] NS Inj 500 ML @ Wide Open IV. 500 / 500 SIG BOLUS ONE Rx#:[id number] Vancomycin Inj 1,000 MG In NS 250 / 250 Inj 250 ML @ 200 mls/hr IV.SIG ONCE ONE Rx#:[id number] Oral 480 / 480 Output: Urine 700 / 700 Other: # Voids 1 Narrative: Left foot - cool forefoot, early ischemic lesions of the hallux and 2nd digit no drainage no obvious abscess slight purple discloration, pain is significant, alight weakness of the foot and ankle Right foot WNL good strength and NVS intact Results - Labs CBC & Chem 7: 12/03/17 15:01 12/03/17 15:01 Laboratory Results - last 24 hr 12/03/17 12/03/17 12/03/17 15:00 15:01 15:01 WBC 8.5 RBC 4.55 Hgb 13.5 Hct 40.3 MCV 88.6 MCH 29.7 MCHC 33.5 RDW 13.7 Plt Count 200 MPV 9.5 Neut % (Auto) 78.3 H Lymph % (Auto) 11.2 [place] % (Auto) 8.3 H Eos % (Auto) 1.8 Baso % (Auto) 0.4 Neut # (Auto) 6.7 Lymph # (Auto) 0.9 L [place] # (Auto) 0.7 Eos # (Auto) 0.1 Baso # (Auto) 0.0 WBC Differential . Differential Comment Auto diff final Sodium 140 Potassium 4.4 Chloride 104 Carbon Dioxide 25.7 Anion Gap 10 BUN 19 H Creatinine 1.34 H Estimated GFR 43 L Random Glucose 97 Lactic Acid 1.1 Calcium 8.8 Total Bilirubin 0.2 AST 16 ALT 31 Alkaline Phosphatase 171 H Total Creatine Kinase Troponin I Total Protein 7.5 Albumin 3.7 12/03/17 12/03/17 15:01 21:42 WBC RBC Hgb Hct MCV MCH MCHC RDW Plt Count MPV Neut % (Auto) Lymph % (Auto) [place] % (Auto) Eos % (Auto) Baso % (Auto) Neut # (Auto) Lymph # (Auto) [place] # (Auto) Eos # (Auto) Baso # (Auto) WBC Differential Differential Comment Sodium Potassium Chloride Carbon Dioxide Anion Gap BUN Creatinine Estimated GFR Random Glucose Lactic Acid Calcium Total Bilirubin AST ALT Alkaline Phosphatase Total Creatine Kinase 42 30 Troponin I Less than 0.02 L 0.02 Total Protein Albumin - Imaging Impressions Foot X-Ray 12/03/17 14:44 CONCLUSION: No plain film findings of osteomyelitis. If there is necessity for further evaluation contrast-enhanced MRI is recommended. Carotid Doppler Study 12/03/17 16:53 CONCLUSION: Negative carotid ultrasound examination. Assessment and Plan - Assessment (1) Abrasion of foot or toe, left Status: Acute (2) Vascular abnormality Code(s): I99.9 - Unspecified disorder of circulatory system Status: Acute - Plan Warming blanket ordered, Nitro paste ordered to toes. Audible pulses via doppler however forefoot cool. Possible small vessel disease vs injury given this is stroke foot- side. No plans for surgery, awaiting vascular eval, reviewed case with medicine.
[2017-12-04 09:36] LABS: Albumin 2.7 g/dL (3.4-5.0); Anion Gap 10 meq/L (5-15); Aspartate Aminotransferase 11 U/L (15-37); Blood Urea Nitrogen 19 mg/dL (7-18); Calcium 8.1 mg/dL (8.5-10.1); Carbon Dioxide 25.3 meq/L (21.0-32.0); Chloride 107 meq/L (98-107); Cholesterol 105 mg/dL (120-200); Glomerular Filtration Rate 43 mL/min (>89); Glucose,Random 78 mg/dL (74-106); Magnesium 1.7 mg/dL (1.5-2.5); Potassium 3.9 meq/L (3.5-5.1); Sodium 142 meq/L (136-145); Triglycerides 178 mg/dL (42-150)
[2017-12-04 09:41] LABS: Alanine Aminotransferase 23 U/L (10-53); Alkaline Phosphatase 131 U/L (45-117); Free T4 (Free Thyroxine) 1.06 ng/dL (0.76-1.46); HDL Cholesterol 31.8 mg/dL (40.0-60.0); LDL Cholesterol,Calculated 38 mg/dL (0-99); Phosphorus 3.3 mg/dL (2.5-4.9); Total Protein 5.8 g/dL (6.4-8.2)
--- NOTE | 2017-12-04 12:33 | CT ---
EXAM DATE: 12/04/2017 12:04 PM EDT AGE/SEX: 47 years / Female INDICATIONS: Atherosclerosis, left toe gangrene CLINICAL DATA: This is the patient's initial encounter. Patient reports that signs and symptoms have been present for 1 day and indicates a pain score of 5/10. MEDICAL/SURGICAL HISTORY: Hypertension. Cerebrovascular disease. None. RADIATION DOSE: 16.42 CTDI (mGy) COMPARISON: No prior exams available for comparison. TECHNIQUE: Volumetric scanning was performed using a multi-row detector CT scanner during bolus infu ruth of 99 ml Omnipaque 350 (iohexol) nonionic water-soluble contrast as a single exam dose. The d quentin was post processed with a variety of visualization algorithms including full volume maximum inten sity projection, multi-planar sliding thin slab reformation, curved planar reformation, and surface r endering techniques. Using automated exposure control and adjustment of the mA and/or kV according t o patient size, radiation dose was kept as low as reasonably achievable to obtain optimal diagnostic quality images. DICOM format image data is available electronically for review and comparison. FINDINGS: FINDINGS: Abdominal Aorta: The lumen is smooth without significant narrowing or aneurysmal dilation. There is mild focal distal aortic ectasia to maximum diameter of 2.6 cm. The proximal celiac and superior m esenteric arteries are patent and normal in diameter. There are solitary renal arteries bilaterally without gross abnormality. Bifurcation: Normal. Right Pelvis: The right common iliac, internal iliac, and external iliac vessels are patent without luminal irregularity. Left Pelvis: The left common iliac, internal iliac, and external iliac vessels are patent and withou t luminal irregularity. Right Thigh: The superficial femoral and profunda vessels are patent without luminal irregularity. Left Thigh: The superficial femoral and profunda vessels are patent without luminal irregularity. Right Knee: The distal femoral and popliteal arteries are patent without luminal irregularity. Left Knee: The distal femoral and popliteal arteries are patent without luminal irregularity. Right Leg: The trifurcation is intact. Left Leg: The trifurcation is intact. CONCLUSION: 1. Slight distal aortic ectasia. 2. No significant inflow stenoses and normal runoff. Electronically signed by: Sigifredo Stewart MD 12/04/2017 12:32 PM EDT
--- NOTE | 2017-12-04 12:37 | P.CONVS ---
History of Present Illness Service: Cardiovascular Consult date: 12/04/17 Reason for Consult: L LE toe wound Primary Care Provider: Mariela Dveries DO Chief Complaint: LEFT GREAT TOE AND 2ND TOE INFECTION History of Present Illness: 47/F with a PMH of Lupus, Antiphospholipid antibody syndrome,cerebral vascular accident, Fibromyalgia and Hypertension Pt c/o Left 1st and 2nd digit toes discolored Wound presented 1W ago that worsened over the past few days Pt initially was placed on Bactrim Pt reported improvement this am Review of Systems All other systems reviewed negative except as stated in HPI Constitutional: Denies chills, Denies fever(s) Skin/Breast: Reports wounds (Left 1st and 2nd toes discolored (distal end)) PMFSH - History History Provided By: Patient, Medical Record - Medical History Medical History: Medical History (Last Reviewed 12/04/17 @ 12:30 by Janell Louis) Hypertension Antiphospholipid antibody syndrome CVA (cerebral vascular accident) Fibromyalgia Lupus - Surgical History Surgical History: Surgical History (Last Reviewed 12/04/17 @ 12:30 by Janell Louis) H/O removal of cyst H/O tubal ligation Hx of prior ablation treatment History of hip surgery - Tobacco History Second Hand Smoke Exposure: Yes Tobacco Use In Past 30 Days: Yes Smoking Status: Current every day smoker Tobacco Type: Cigarettes - Alcohol History How Often Do You Have a Drink Containing Alcohol: Never - Substance Use History Substance History: Active Abuse - Substance Use Type Marijuana Status: Active Route Used: Inhalation Comment: uses for pain - Travel History Recent Travel in the [place] Within the Last 8 Weeks: No Recent Travel Out of the Country Within the Last 8 Weeks: No - Immunization History Tetanus Immunization: <5 Years Hx Influenza Vaccine This Season: Yes Medications and Allergies Allergies Allergy/AdvReac Type Severity Reaction Status Date / Time No Known Allergies Allergy Unverified 12/03/17 14:39 Home Medications Medication Instructions Recorded Confirmed Type Hair, Skin, Nails with Biotin 2,500 mcg PO DAILY 12/01/17 12/03/17 History amitriptyline 25 mg PO TID 12/01/17 12/03/17 History apixaban [Eliquis] 5 mg PO BID 12/01/17 12/03/17 History atorvastatin 80 mg PO DAILY 12/01/17 12/03/17 History calcitriol 0.25 mcg PO DAILY 12/01/17 12/03/17 History celecoxib 100 mg PO BID 12/01/17 12/03/17 History fluoxetine 40 mg PO DAILY 12/01/17 12/03/17 History metoprolol tartrate 50 mg PO BID 12/01/17 12/03/17 History montelukast 10 mg PO QPM 12/01/17 12/03/17 History mycophenolate mofetil 500 mg PO BID 12/01/17 12/03/17 History omeprazole 40 mg PO DAILY 12/01/17 12/03/17 History oxybutynin chloride 5 mg PO BID 12/01/17 12/03/17 History spironolactone 25 mg PO DAILY 12/01/17 12/03/17 History tizanidine 4 mg PO TID PRN 12/01/17 12/03/17 History Active Medications: Active Medications Acetaminophen (Tylenol) 650 mg PO Q4H PRN PRN Reason: Temp > 100.4 Acetaminophen (Tylenol) 650 mg PO Q6HR PRN PRN Reason: PAIN SCALE 1 TO 2 Al Hydroxide/Mg Hydroxide (Milk Of Magnesia Liq) 30 ml PO Q12H PRN PRN Reason: Mild Constipation Amitriptyline HCl (Elavil) 25 mg PO TID [facility] Last Admin: 12/04/17 09:23 Dose: 25 mg Apixaban (Eliquis) 5 mg PO BID [facility] Last Admin: 12/04/17 09:24 Dose: 5 mg Atorvastatin Calcium (Lipitor) 80 mg PO DAILY [facility] Last Admin: 12/04/17 09:22 Dose: 80 mg Bisacodyl (Dulcolax Supp) 10 mg RECTAL DAILY PRN PRN Reason: SEVERE CONSITIPATION Calcitriol (Rocaltrol) 0.25 mcg PO DAILY [facility] Last Admin: 12/04/17 09:23 Dose: 0.25 mcg Celecoxib (Celebrex) 100 mg PO BID [facility] Last Admin: 12/04/17 09:24 Dose: 100 mg Famotidine (Pepcid) 10 mg PO BID [facility] Last Admin: 12/04/17 09:23 Dose: 10 mg Fluoxetine HCl (Prozac) 40 mg PO DAILY [facility] Last Admin: 12/04/17 09:22 Dose: 40 mg Sodium Chloride (Ns Inj) 1,000 mls @ 100 mls/hr IV.CONT .Q10H [facility] Last Admin: 12/04/17 02:43 Dose: Not Given Pharmacy Profile Note (Vancomycin Consult Pharmacy) 0 mls @ 0 mls/hr OTHER UNSCH [facility] Piperacillin/Tazobactam/Dextrose (Zosyn 3.375 Gm Premix) 50 mls @ 100 mls/hr IV.SIG Q8H [facility] Last Admin: 12/04/17 09:15 Dose: 100 mls/hr Vancomycin HCl 1,750 mg/ (Sodium Chloride) 517.5 mls @ 250 mls/hr IV.SIG Q24H [facility] Last Admin: 12/04/17 05:07 Dose: 250 mls/hr Lactulose (Lactulose Liq) 30 ml PO DAILY PRN PRN Reason: SEVERE CONSITIPATION Metoprolol Tartrate (Lopressor) 50 mg PO BID [facility] Last Admin: 12/04/17 09:23 Dose: 50 mg Miscellaneous (Pill Splitter) 1 each OTHER [facility] Miscellaneous Information ([facility] Ordered Lab Info) 0 each OTHER ONCE ONE Stop: 12/06/17 05:46 Montelukast Sodium (Singulair) 10 mg PO QPM [facility] Last Admin: 12/03/17 20:23 Dose: 10 mg Morphine Sulfate (Morphine Inj) 2 mg IV.PUSH Q3H PRN PRN Reason: PAIN 3-5; IF UABLE TO TAKE PO Morphine Sulfate (Morphine Inj) 4 mg IV.PUSH Q3H PRN PRN Reason: PAIN 6-10;IF UNABLE TO TAKE PO Morphine Sulfate (Morphine Inj) 4 mg IV.PUSH Q3H PRN PRN Reason: BREAKTHROUGH PAIN Last Admin: 12/03/17 20:25 Dose: 4 mg Mycophenolate Mofetil (Cellcept) 500 mg PO BID [facility] Last Admin: 12/04/17 09:23 Dose: 500 mg Naloxone HCl (Narcan Inj) 0.4 mg IV.PUSH UNSCH PRN PRN Reason: SEE LABEL COMMENTS Nitroglycerin (Nitro-Bid 2% Oint) 1 inch TOPICAL Q8HR [facility] Last Admin: 12/04/17 10:43 Dose: 1 inch Ondansetron HCl (Zofran Inj) 4 mg IV.PUSH Q6H PRN PRN Reason: NAUSEA OR VOMITING Last Admin: 12/04/17 09:17 Dose: 4 mg Oxybutynin Chloride (Ditropan) 5 mg PO BID [facility] Last Admin: 12/04/17 09:24 Dose: 5 mg Oxycodone/Acetaminophen (Percocet 10/325 Mg) 1 tab PO Q6H PRN PRN Reason: PAIN SCALE 6 TO 10 Last Admin: 12/04/17 06:01 Dose: 1 tab Oxycodone/Acetaminophen (Percocet 5/325 Mg) 1 tab PO Q6H PRN PRN Reason: PAIN SCALE 3 TO 5 Pantoprazole Sodium (Protonix) 40 mg PO DAILY [facility] Last Admin: 12/04/17 09:24 Dose: 40 mg Pt:Hair,Skin, Nails (With Biotin 2500 Mg) 0 each PO DAILY [facility] Senna/Docusate Sodium (Margie-Colace) 1 tab PO BID [facility] Last Admin: 12/04/17 09:22 Dose: 1 tab Sennosides (Senokot) 17.2 mg PO Q12H PRN PRN Reason: Moderate Constipation Spironolactone (Aldactone) 25 mg PO DAILY [facility] Last Admin: 12/04/17 09:23 Dose: 25 mg Temazepam (Restoril) 15 mg PO HS PRN PRN Reason: INSOMNIA Tizanidine HCl (Zanaflex) 4 mg PO TID PRN PRN Reason: MUSCLE PAIN Physical Exam Vital Signs / I&O: Vital Signs 12/03/17 14:19 12/03/17 14:37 12/03/17 15:25 Temperature 98.4 F Pulse Rate 91 H 82 87 Respiratory Rate 18 18 18 Blood Pressure 184/107 H 196/111 H 175/78 H Pulse Oximetry 98 99 96 12/03/17 17:36 12/03/17 20:00 12/04/17 00:00 Temperature 98 F 97.3 F L Pulse Rate 87 79 76 Respiratory Rate 18 18 18 Blood Pressure 169/75 H 174/80 H 133/65 Pulse Oximetry 95 97 94 L 12/04/17 00:10 12/04/17 00:36 12/04/17 04:00 Temperature 97.1 F L Pulse Rate 81 76 Respiratory Rate 18 Blood Pressure 144/90 H Pulse Oximetry 97 97 12/04/17 09:10 12/04/17 09:13 Temperature Pulse Rate Respiratory Rate 20 Blood Pressure Pulse Oximetry 97 Intake & Output 12/03/17 12/04/17 12/04/17 18:59 06:59 18:59 Intake Total 800 / 800 1530 / 1530 Output Total 700 / 700 Balance 800 / 800 830 / 830 Weight 113.398 kg Intake: IV 800 / 800 1050 / 1050 NS Inj 1,000 ML @ 100 mls/hr IV 1000 / 1000 .CONT .Q10H [facility] Rx#:[id number] Zosyn 3.375 GM Premix 50 ML @ 50 / 50 50 / 50 100 mls/hr IV.SIG Q8H [facility] Rx#: [id number] NS Inj 500 ML @ Wide Open IV. 500 / 500 SIG BOLUS ONE Rx#:[id number] Vancomycin Inj 1,000 MG In NS 250 / 250 Inj 250 ML @ 200 mls/hr IV.SIG ONCE ONE Rx#:[id number] Oral 480 / 480 Output: Urine 700 / 700 Other: # Voids 1 Neuro: Speech clear GCS 15 HEENT: Equal/reactive Neck: No JVD Distention Heart: RRR Lungs: CTA Abdomen: S/NT Vascular: Left Multiphasic DP/PT LE warm with motor intact Wound noted to 1st and 2nd digit toes times 1W Extremities: LE 4/5 UE 5/5 Laboratory Results - last 24 hr 12/03/17 12/03/17 12/03/17 15:00 15:01 15:01 WBC 8.5 RBC 4.55 Hgb 13.5 Hct 40.3 MCV 88.6 MCH 29.7 MCHC 33.5 RDW 13.7 Plt Count 200 MPV 9.5 Neut % (Auto) 78.3 H Lymph % (Auto) 11.2 Hendricks % (Auto) 8.3 H Eos % (Auto) 1.8 Baso % (Auto) 0.4 Neut # (Auto) 6.7 Lymph # (Auto) 0.9 L Hendricks # (Auto) 0.7 Eos # (Auto) 0.1 Baso # (Auto) 0.0 WBC Differential . Differential Comment Auto diff final Sodium 140 Potassium 4.4 Chloride 104 Carbon Dioxide 25.7 Anion Gap 10 BUN 19 H Creatinine 1.34 H Estimated GFR 43 L Random Glucose 97 Lactic Acid 1.1 Calcium 8.8 Phosphorus Magnesium Total Bilirubin 0.2 AST 16 ALT 31 Alkaline Phosphatase 171 H Total Creatine Kinase Troponin I Total Protein 7.5 Albumin 3.7 Triglycerides Cholesterol LDL Cholesterol, Calc HDL Cholesterol Cholesterol/HDL Ratio TSH Free T4 12/03/17 12/03/17 12/04/17 15:01 21:42 06:30 WBC 5.7 RBC 3.50 L Hgb 10.5 L D Hct 31.7 L MCV 90.6 MCH 29.9 MCHC 33.0 RDW 13.9 Plt Count 134 L D MPV 9.5 Neut % (Auto) 66.9 Lymph % (Auto) 19.0 Hendricks % (Auto) 11.0 H Eos % (Auto) 2.5 Baso % (Auto) 0.6 Neut # (Auto) 3.8 Lymph # (Auto) 1.1 Hendricks # (Auto) 0.6 Eos # (Auto) 0.1 Baso # (Auto) 0.0 WBC Differential . Differential Comment Auto diff final Sodium Potassium Chloride Carbon Dioxide Anion Gap BUN Creatinine Estimated GFR Random Glucose Lactic Acid Calcium Phosphorus Magnesium Total Bilirubin AST ALT Alkaline Phosphatase Total Creatine Kinase 42 30 Troponin I Less than 0.02 L 0.02 Total Protein Albumin Triglycerides Cholesterol LDL Cholesterol, Calc HDL Cholesterol Cholesterol/HDL Ratio TSH Free T4 12/04/17 06:30 WBC RBC Hgb Hct MCV MCH MCHC RDW Plt Count MPV Neut % (Auto) Lymph % (Auto) Hendricks % (Auto) Eos % (Auto) Baso % (Auto) Neut # (Auto) Lymph # (Auto) Hendricks # (Auto) Eos # (Auto) Baso # (Auto) WBC Differential Differential Comment Sodium 142 Potassium 3.9 Chloride 107 Carbon Dioxide 25.3 Anion Gap 10 BUN 19 H Creatinine 1.33 H Estimated GFR 43 L Random Glucose 78 Lactic Acid Calcium 8.1 L Phosphorus 3.3 Magnesium 1.7 Total Bilirubin 0.3 AST 11 L ALT 23 Alkaline Phosphatase 131 H Total Creatine Kinase Troponin I Total Protein 5.8 L D Albumin 2.7 L D Triglycerides 178 H Cholesterol 105 L LDL Cholesterol, Calc 38 HDL Cholesterol 31.8 L Cholesterol/HDL Ratio 3.30 TSH 2.940 Free T4 1.06 Microbiology 12/03/17 15:00 Aerobic Blood Culture - Preliminary Blood - Peripheral No growth in 1 day Anaerobic Blood Culture - Preliminary No growth in 1 day 12/03/17 14:55 Aerobic Blood Culture - Preliminary Blood - Peripheral No growth in 1 day Anaerobic Blood Culture - Preliminary No growth in 1 day Impressions Foot X-Ray 12/03/17 14:44 CONCLUSION: No plain film findings of osteomyelitis. If there is necessity for further evaluation contrast-enhanced MRI is recommended. Carotid Doppler Study 12/03/17 16:53 CONCLUSION: Negative carotid ultrasound examination. Assessment and Plan - Plan 47/F with L LE discoloration and wounds to 1st and 2nd digit toes times 1W LE warm w/ motor intact Plan Ordered CTA aorta w/ runoff for further evaluation Ordered MANUEL Will review exams once completed to determine next plan of action Pt and mother made aware of plan Janell Louis NP [facility] [phone] - Attending Attestation Agree with above note. Katz portions of H&P repeated. Palpable pedal pulses though difficult to appreciate. Multiphasic signals. Tissue loss improving. May be related to underlying hypercoagulability vs SLE. Will check CTA to r/o embolic source. Agree with topical NTG. Will follow. Mani Fletcher MD FACS RPV[employer] orthopedic assistant [facility] - Heart and Vascular Surgery at [facility] [phone]
--- NOTE | 2017-12-04 14:28 | P.PN ---
Subjective Interval history: Nursing denies any deterioration since last night. Patient herself thinks that the dark brown spots on her to greater toes is increased but overall she thinks that her toes have more normal pinkish color today, says that her toes were a dark blue color yesterday. Says she still has considerable pain in all of her toes but is improved since admission. Physical Exam Vital signs: Vital Signs 12/03/17 14:37 12/03/17 15:25 12/03/17 17:36 Temperature Pulse Rate 82 87 87 Respiratory Rate 18 18 18 Blood Pressure 196/111 H 175/78 H 169/75 H Pulse Oximetry 99 96 95 12/03/17 20:00 12/04/17 00:00 12/04/17 00:10 Temperature 98 F 97.3 F L Pulse Rate 79 76 Respiratory Rate 18 18 Blood Pressure 174/80 H 133/65 Pulse Oximetry 97 94 L 97 12/04/17 00:36 12/04/17 04:00 12/04/17 08:00 Temperature 97.1 F L 98.2 F Pulse Rate 81 76 73 Respiratory Rate 18 18 Blood Pressure 144/90 H 124/72 Pulse Oximetry 97 96 12/04/17 09:10 12/04/17 09:13 12/04/17 12:00 Temperature 97.9 F Pulse Rate 75 Respiratory Rate 20 20 Blood Pressure 126/64 Pulse Oximetry 97 93 L Intake & Output 12/03/17 12/04/17 12/04/17 18:59 06:59 18:59 Intake Total 800 / 800 1530 / 1530 1000 / 1000 Output Total 700 / 700 Balance 800 / 800 830 / 830 1000 / 1000 Weight 113.398 kg Intake: IV 800 / 800 1050 / 1050 1000 / 1000 NS Inj 1,000 ML @ 100 mls/hr IV 1000 / 1000 1000 / 1000 .CONT .Q10H [facility] Rx#:[id number] Zosyn 3.375 GM Premix 50 ML @ 50 / 50 50 / 50 100 mls/hr IV.SIG Q8H [facility] Rx#: [id number] NS Inj 500 ML @ Wide Open IV. 500 / 500 SIG BOLUS ONE Rx#:[id number] Vancomycin Inj 1,000 MG In NS 250 / 250 Inj 250 ML @ 200 mls/hr IV.SIG ONCE ONE Rx#:[id number] Oral 480 / 480 Output: Urine 700 / 700 Other: # Voids 1 Narrative: Possibly necrotic areas of induration measuring about a centimeter to subcentimeter in diameter over to greater toes of left foot on plantar surface. In general the patient has erythematous toes of all 5 digits. There is no ulceration noted on the bottom. Has good pulses with good cap refill. Right foot appears normal Results - Labs CBC & Chem 7: 12/04/17 06:30 12/04/17 06:30 Laboratory Results - last 24 hr 12/03/17 12/03/17 12/03/17 15:00 15:01 15:01 WBC 8.5 RBC 4.55 Hgb 13.5 Hct 40.3 MCV 88.6 MCH 29.7 MCHC 33.5 RDW 13.7 Plt Count 200 MPV 9.5 Neut % (Auto) 78.3 H Lymph % (Auto) 11.2 Camp % (Auto) 8.3 H Eos % (Auto) 1.8 Baso % (Auto) 0.4 Neut # (Auto) 6.7 Lymph # (Auto) 0.9 L Camp # (Auto) 0.7 Eos # (Auto) 0.1 Baso # (Auto) 0.0 WBC Differential . Differential Comment Auto diff final Sodium 140 Potassium 4.4 Chloride 104 Carbon Dioxide 25.7 Anion Gap 10 BUN 19 H Creatinine 1.34 H Estimated GFR 43 L Random Glucose 97 Lactic Acid 1.1 Calcium 8.8 Phosphorus Magnesium Total Bilirubin 0.2 AST 16 ALT 31 Alkaline Phosphatase 171 H Total Creatine Kinase Troponin I Total Protein 7.5 Albumin 3.7 Triglycerides Cholesterol LDL Cholesterol, Calc HDL Cholesterol Cholesterol/HDL Ratio TSH Free T4 12/03/17 12/03/17 12/04/17 15:01 21:42 06:30 WBC 5.7 RBC 3.50 L Hgb 10.5 L D Hct 31.7 L MCV 90.6 MCH 29.9 MCHC 33.0 RDW 13.9 Plt Count 134 L D MPV 9.5 Neut % (Auto) 66.9 Lymph % (Auto) 19.0 Camp % (Auto) 11.0 H Eos % (Auto) 2.5 Baso % (Auto) 0.6 Neut # (Auto) 3.8 Lymph # (Auto) 1.1 Camp # (Auto) 0.6 Eos # (Auto) 0.1 Baso # (Auto) 0.0 WBC Differential . Differential Comment Auto diff final Sodium Potassium Chloride Carbon Dioxide Anion Gap BUN Creatinine Estimated GFR Random Glucose Lactic Acid Calcium Phosphorus Magnesium Total Bilirubin AST ALT Alkaline Phosphatase Total Creatine Kinase 42 30 Troponin I Less than 0.02 L 0.02 Total Protein Albumin Triglycerides Cholesterol LDL Cholesterol, Calc HDL Cholesterol Cholesterol/HDL Ratio TSH Free T4 12/04/17 06:30 WBC RBC Hgb Hct MCV MCH MCHC RDW Plt Count MPV Neut % (Auto) Lymph % (Auto) Camp % (Auto) Eos % (Auto) Baso % (Auto) Neut # (Auto) Lymph # (Auto) Camp # (Auto) Eos # (Auto) Baso # (Auto) WBC Differential Differential Comment Sodium 142 Potassium 3.9 Chloride 107 Carbon Dioxide 25.3 Anion Gap 10 BUN 19 H Creatinine 1.33 H Estimated GFR 43 L Random Glucose 78 Lactic Acid Calcium 8.1 L Phosphorus 3.3 Magnesium 1.7 Total Bilirubin 0.3 AST 11 L ALT 23 Alkaline Phosphatase 131 H Total Creatine Kinase Troponin I Total Protein 5.8 L D Albumin 2.7 L D Triglycerides 178 H Cholesterol 105 L LDL Cholesterol, Calc 38 HDL Cholesterol 31.8 L Cholesterol/HDL Ratio 3.30 TSH 2.940 Free T4 1.06 Microbiology 12/03/17 15:00 Blood - Peripheral Aerobic Blood Culture - Preliminary No growth in 1 day 12/03/17 15:00 Blood - Peripheral Anaerobic Blood Culture - Preliminary No growth in 1 day 12/03/17 14:55 Blood - Peripheral Aerobic Blood Culture - Preliminary No growth in 1 day 12/03/17 14:55 Blood - Peripheral Anaerobic Blood Culture - Preliminary No growth in 1 day - Imaging Impressions Foot X-Ray 12/03/17 14:44 CONCLUSION: No plain film findings of osteomyelitis. If there is necessity for further evaluation contrast-enhanced MRI is recommended. Carotid Doppler Study 12/03/17 16:53 CONCLUSION: Negative carotid ultrasound examination. Aorta w/Runoff CTA 12/04/17 00:00 CONCLUSION: 1. Slight distal aortic ectasia. 2. No significant inflow stenoses and normal runoff. Assessment and Plan - Assessment (1) Lupus (systemic lupus erythematosus) Code(s): M32.9 - Systemic lupus erythematosus, unspecified Status: Chronic (2) Antiphospholipid antibody with hypercoagulable state Code(s): D68.61 - Antiphospholipid syndrome Status: Chronic (3) CVA (cerebral vascular accident) Code(s): I63.9 - Cerebral infarction, unspecified Status: Chronic (4) Fibromyalgia Code(s): M79.7 - Fibromyalgia Status: Chronic (5) Hypertension Code(s): I10 - Essential (primary) hypertension Status: Chronic (6) Cellulitis of foot Code(s): L03.119 - Cellulitis of unspecified part of limb Status: Acute (7) Vascular abnormality Code(s): I99.9 - Unspecified disorder of circulatory system Status: Acute - Plan Suspected cellulitis of left foot and/or gangrene of the left first and second toes - Appreciate podiatry and vascular surgery input CTA runoff shows no stenotic lesions, clinically the patient has good blood flow, and is on Eliquis so I do not suspect any acute thrombotic events - Continue vancomycin and Zosyn for now, if no significant improvement by tomorrow then consult infectious disease. possible spider bite appearing lesions but no specialized surgical or unique abx warranted otherwise - If CRP/sed rate are elevated will obtain MRI foot to rule out osteomyelitis - possible autoimmune complex deposits, may consider a trial of steroids Antiphospholipid antibody syndrome - continue on chronic Eliquis History of CVA -continue physical therapy occupational therapy Fibromyalgia -continue on pain control Hypertension - home medications Lupus -continue on CellCept eliquis
--- NOTE | 2017-12-04 15:07 | ECHRPT ---
EXAM DATE: 12/04/2017 2:21 PM EDT AGE/SEX: 47 years / Female INDICATIONS: Ischemic foot, wound infection CLINICAL DATA: This is the patient's initial encounter. Patient reports that signs and symptoms have been present for 1 week and indicates a pain score of 5/10. MEDICAL/SURGICAL HISTORY: . antiphospholipid antibody syndrome, CVA, fibromyalgia, hypertension , lupus . Cyst removal, tubal ligation, hip surgery, ablation COMPARISON: No prior exams available for comparison. TECHNIQUE: Four-cuff ankle and brachial pressures were obtained. Pulse cuff waveform tracings of the ankles were recorded, and ankle-brachial indices were calculated. PRESSURES (mmHg): Brachial (arm) : RIGHT: IV SITE, LEFT: 114 Ankle : RIGHT: 160, LEFT: 142 MANUEL : RIGHT: 1.40, LEFT: 1.25 Toe : RIGHT: 55, LEFT: 0 FINDINGS: Pulsed-Cuff Waveform: There are good upstroke and a dicrotic downstroke of the tracings in the ankle waveforms. No detectable left toe waveform. Other: None. CONCLUSION: 1. Normal ABIs bilaterally. 2. Slightly diminished right TBI with an absent pulse on the left suggesting intrinsic small vessel disease of the feet bilaterally, left worse than right. Electronically signed by: Bronson Joyce MD 12/04/2017 3:05 PM EDT
[2017-12-04 15:56] LABS: Hemoglobin A1c 5.2 % (4.3-6.0)
--- NOTE | 2017-12-04 16:17 | ECHRPT ---
Indication: HYPERTENSIVE HEART DISEASE CONCLUSIONS Normal left ventricular size. Normal wall motion. Mild concentric left ventricular hypertrophy. The left ventricular systolic function is normal with an estimated ejection fraction in the range of 60-65%. Mild aortic valve sclerosis and calcification is present. Moderate aortic valve regurgitation. There is trace tricuspid valve regurgitation. The estimated pulmonary arterial pressure is 35 mmHg. BP: / HR: Rhythm: Sinus MEASUREMENTS (Male / Female) Normal Values Technical Quality:Fair 2D ECHO LV Diastolic Diameter PLAX 4.6 cm 4.2 - 5.9 / 3.9 - 5.3 cm LV Systolic Diameter PLAX 3.3 cm IVS Diastolic Thickness 1.4 cm 0.6 - 1.0 / 0.6 - 0.9 cm LVPW Diastolic Thickness 1.4 cm 0.6 - 1.0 / 0.6 - 0.9 cm LV Relative Wall Thickness 0.6 RV Internal Dim ED PLAX 2.7 cm LVOT Diameter 2.3 cm Aortic Root Diameter 3.3 cm LA Systolic Diameter LX 4.8 cm 3.0 - 4.0 / 2.7 - 3.8 cm M-MODE AV Cusp Separation MM 1.7 cm DOPPLER AV Peak Velocity 245.5 cm/s AV Peak Gradient 24.1 mmHg AV Mean Gradient 14.5 mmHg AV Velocity Time Integral 50.9 cm AI Peak Velocity 471.0 cm/s AI Peak Gradient 88.7 mmHg AI Pressure Half Time 622.0 ms LVOT Peak Velocity 91.7 cm/s LVOT Peak Gradient 3.4 mmHg LVOT Velocity Time Integral 21.3 cm AV Area Cont Eq vti 1.7 cm AV Area Cont Eq pk 1.6 cm Mitral E Point Velocity 75.5 cm/s Mitral A Point Velocity 69.1 cm/s Mitral E to A Ratio 1.1 LV E' Lateral Velocity 10.5 cm/s Mitral E to LV E' Lateral Ratio 7.2 LV E' Septal Velocity 8.2 cm/s Mitral E to LV E' Septal Ratio 9.2 TR Peak Velocity 282.0 cm/s TR Peak Gradient 31.8 mmHg Right Atrial Pressure 10.0 mmHg Pulmonary Artery Systolic Pressu 41.8 mmHg Right Ventricular Systolic Press 41.8 mmHg PV Peak Velocity 63.2 cm/s PV Peak Gradient 1.6 mmHg FINDINGS LEFT VENTRICLE Normal left ventricular size. Normal wall motion. Mild concentric left ventricular hypertrophy. The left ventricular systolic function is normal with an estimated ejection fraction in the range of 60-65%. RIGHT VENTRICLE Normal right ventricular size and systolic function. LEFT ATRIUM The left atrial size is upper normal. RIGHT ATRIUM The right atrial size is upper normal. ATRIAL SEPTUM No atrial level shunt is demonstrated by color flow Doppler interrogation. AORTA The aortic root and proximal ascending aorta are normal in size on limited imaging. MITRAL VALVE Structurally normal mitral valve. No mitral valve stenosis or regurgitation. AORTIC VALVE Mild aortic valve sclerosis and calcification is present. Moderate aortic valve regurgitation. TRICUSPID VALVE There is trace tricuspid valve regurgitation. The estimated pulmonary arterial pressure is 35 mmHg. PULMONARY VALVE No pulmonary valve regurgitation or stenosis. VESSELS The inferior vena cava is normal in size. PERICARDIUM No pericardial effusion. Lenny Conti MD (Electronically Signed) Final Date:04 December 2017 16:16
[2017-12-04] MEDS: Montelukast 10 MG Tablet PO SCH (18:25)
[2017-12-04] MEDS ORDERED: Gadobenate Dimeglumine PF Inj 10 ML VIAL (for RAD MRI) IVCONTRAST ONE (22:01)
--- NOTE | 2017-12-04 23:29 | MR ---
EXAM DATE: 12/04/2017 10:33 PM EDT AGE/SEX: 47 years / Female INDICATIONS: Osteomyelitis. Great toe pain for about two weeks. CLINICAL DATA: This is the patient's initial encounter. Patient reports that signs and symptoms have been present for 2 weeks and indicates a pain score of 5/10. MEDICAL/SURGICAL HISTORY: Renal failure, chronic. Tubal ligation. Hip replacement. COMPARISON: No prior exams available for comparison. TECHNIQUE: Multiplanar, multisequence MRI examination was performed without contrast and after th e intravenous administration of 20 ml Multihance (gadobenate) single exam dose. FINDINGS: There are degenerative changes of the first metatarsophalangeal joint with joint space narrowing and some minimal subchondral signal abnormality in the proximal phalanx. There is also degenerative horta e at the interphalangeal joint great toe with minimal subchondral signal abnormality. No abnormal flu id collections. Mild osteoarthritis in the remainder of the left foot. CONCLUSION: 1. Degenerative changes at the great toe. No evidence for osteomyelitis. Electronically signed by: Armen Marcelo MD 12/04/2017 11:27 PM EDT
[2017-12-05 05:09] LABS: Calcium 8.6 mg/dL (8.5-10.1); Carbon Dioxide 26.1 meq/L (21.0-32.0); Potassium 5.1 meq/L (3.5-5.1)
[2017-12-05] MEDS: Piperacil/Tazo 3.375 GM Premix 50 ML IV.SIG SCH ×3 (05:11→15:28)
[2017-12-05] MEDS: Sod Chloride 0.9% Inj 1,000 ML IV.CONT SCH ×3 (05:11→18:27)
[2017-12-05] MEDS: Vancomycin Inj 1,750 MG in Sodium Chlor 0.9% Inj 500 ML IV.SIG SCH (05:12)
[2017-12-05] MEDS: Spironolactone 25 MG Tablet PO SCH (09:07)
[2017-12-05] MEDS: Celecoxib 100 MG Capsule PO SCH ×2 (09:08→21:01)
[2017-12-05] MEDS: Amitriptyline 25 MG Tablet PO SCH ×3 (09:09→17:13)
[2017-12-05] MEDS: Metoprolol Tartrate 50 MG Tablet PO SCH ×2 (09:10→21:05)
[2017-12-05] MEDS: Famotidine 20 MG Tablet PO SCH ×2 (09:12→21:03)
[2017-12-05] MEDS: FLUoxetine 20 MG Capsule PO SCH (09:12)
[2017-12-05] MEDS: Calcitriol 0.25 MCG Capsule PO SCH (09:12)
[2017-12-05] MEDS: Senna/Docusate Sodium 8.6/50 MG Tablet PO SCH ×2 (09:12→21:04)
[2017-12-05] MEDS: oxyCODONE/Acetaminophen 10/325 Tablet PO PRN ×3 (09:13→21:10)
[2017-12-05] MEDS ORDERED: MethylPREDNISolone Sod Succinate Inj 125 MG/2 ML Vial IV.PUSH ONE (09:35)
--- NOTE | 2017-12-05 10:11 | P.PNVS ---
Subjective Subjective/Hospital Course: Pt in bed this am in good spirits Pt w/o complaints LE warm w/ motor intact Pt with improved L foot discoloration Wound to L 1-2 digit toes stable Objective Vital Signs / I&O: Vital Signs 12/04/17 12:00 12/04/17 14:54 12/04/17 16:00 Temperature 97.9 F 97.6 F Pulse Rate 75 71 Respiratory Rate 20 20 16 Blood Pressure 126/64 137/64 Pulse Oximetry 93 L 96 12/04/17 20:23 12/05/17 00:39 12/05/17 04:28 Temperature 98.0 F 98.3 F 98.1 F Pulse Rate 85 71 82 Respiratory Rate 18 20 18 Blood Pressure 155/69 H 128/62 131/72 Pulse Oximetry 97 93 L 97 12/05/17 08:00 Temperature 97.7 F Pulse Rate 78 Respiratory Rate 17 Blood Pressure 155/78 H Pulse Oximetry 97 Intake & Output 12/04/17 12/05/17 12/05/17 18:59 06:59 18:59 Intake Total 2237.5 / 2237.5 1480 / 1480 1050 / 1050 Balance 2237.5 / 2237.5 1480 / 1480 1050 / 1050 Intake: IV 1617.5 / 1617.5 1000 / 1000 1050 / 1050 NS Inj 1,000 ML @ 100 mls/hr IV 1000 / 1000 1000 / 1000 1000 / 1000 .CONT .Q10H [facility] Rx#:[id number] Zosyn 3.375 GM Premix 50 ML @ 100 / 100 50 / 50 100 mls/hr IV.SIG Q8H [facility] Rx#: [id number] Vancomycin Inj 1,750 MG In NS 517.5 / 517.5 Inj 500 ML @ 250 mls/hr IV.SIG Q24H [facility] Rx#:[id number] Oral 620 / 620 480 / 480 Other: # Voids 3 4 Date of Last Bowel Movement 12/04/17 # Bowel Movements 0 Physical Exam: GENERAL: [age]febrile 47/F A&Ox3, NAD SKIN: Warm and dry. Brownish discolored 1-2 digit toe (LEFT) CARDIOVASCULAR: Regular rate and rhythm without murmurs, gallops, or rubs. RESPIRATORY: Breath sounds equal bilaterally. No accessory muscle use. LE warm w/ motor intact Laboratory Results - last 24 hr 12/04/17 12/04/17 12/04/17 06:30 06:30 06:30 WBC 5.7 RBC 3.50 L Hgb 10.5 L D Hct 31.7 L MCV 90.6 MCH 29.9 MCHC 33.0 RDW 13.9 Plt Count 134 L D MPV 9.5 Neut % (Auto) 66.9 Lymph % (Auto) 19.0 [facility] [place] [facility] % (Auto) 11.0 H Eos % (Auto) 2.5 Baso % (Auto) 0.6 Neut # (Auto) 3.8 Lymph # (Auto) 1.1 [facility] # (Auto) 0.6 Eos # (Auto) 0.1 Baso # (Auto) 0.0 WBC Differential . Differential Comment Auto diff final ESR Sodium Potassium Chloride Carbon Dioxide Anion Gap BUN Creatinine Estimated GFR Random Glucose Hemoglobin A1c 5.2 Calcium C-Reactive Protein 0.46 H 12/04/17 12/05/17 06:30 03:47 WBC RBC Hgb Hct MCV MCH MCHC RDW Plt Count MPV Neut % (Auto) Lymph % (Auto) [facility] % (Auto) Eos % (Auto) Baso % (Auto) Neut # (Auto) Lymph # (Auto) [facility] # (Auto) Eos # (Auto) Baso # (Auto) WBC Differential Differential Comment ESR 38 H Sodium 142 Potassium 5.1 D Chloride 109 H Carbon Dioxide 26.1 Anion Gap 7 BUN 15 Creatinine 1.38 H Estimated GFR 41 L Random Glucose 90 Hemoglobin A1c Calcium 8.6 C-Reactive Protein Microbiology 12/03/17 15:00 Aerobic Blood Culture - Preliminary Blood - Peripheral No growth in 1 day Anaerobic Blood Culture - Preliminary No growth in 1 day 12/03/17 14:55 Aerobic Blood Culture - Preliminary Blood - Peripheral No growth in 1 day Anaerobic Blood Culture - Preliminary No growth in 1 day Impressions Foot X-Ray 12/03/17 14:44 CONCLUSION: No plain film findings of osteomyelitis. If there is necessity for further evaluation contrast-enhanced MRI is recommended. Carotid Doppler Study 12/03/17 16:53 CONCLUSION: Negative carotid ultrasound examination. Aorta w/Runoff CTA 12/04/17 00:00 CONCLUSION: 1. Slight distal aortic ectasia. 2. No significant inflow stenoses and normal runoff. Extremity Arterial Study 12/04/17 00:00 CONCLUSION: 1. Normal ABIs bilaterally. 2. Slightly diminished right TBI with an absent pulse on the left suggesting intrinsic small vessel disease of the feet bilaterally, left worse than right. Foot MRI 12/04/17 00:00 CONCLUSION: 1. Degenerative changes at the great toe. No evidence for osteomyelitis. Assessment and Plan - Assessment (1) Abrasion of foot or toe, left Status: Acute - Plan 47/F with L LE discoloration and wounds to 1st and 2nd digit toes times 1W LE warm w/ motor intact CTA/MANUEL reviewed Plan Discussed CTA/MANUEL results w/ pt Questions answered Continue wound care per Podiatry Continue anticoagulation/antiplatelet/Statin therapy Pt clear for d/c from a vascular standpoint Arranged out pt f/u Janell Louis NP [facility] [phone] Discharge Planning: Clear for d/c from a vascular standpoint Arranged out pt f/u in 4W
--- NOTE | 2017-12-05 11:10 | P.PN ---
Subjective Interval history: Nursing denies any deterioration since last night. Patient reports still having considerable pain but says it has improved since admission in her left foot. No fevers have been noted. Physical Exam Vital signs: Vital Signs 12/04/17 12:00 12/04/17 14:54 12/04/17 16:00 Temperature 97.9 F 97.6 F Pulse Rate 75 71 Respiratory Rate 20 20 16 Blood Pressure 126/64 137/64 Pulse Oximetry 93 L 96 12/04/17 20:23 12/05/17 00:39 12/05/17 04:28 Temperature 98.0 F 98.3 F 98.1 F Pulse Rate 85 71 82 Respiratory Rate 18 20 18 Blood Pressure 155/69 H 128/62 131/72 Pulse Oximetry 97 93 L 97 12/05/17 08:00 Temperature 97.7 F Pulse Rate 78 Respiratory Rate 17 Blood Pressure 155/78 H Pulse Oximetry 97 Intake & Output 12/04/17 12/05/17 12/05/17 18:59 06:59 18:59 Intake Total 2237.5 / 2237.5 1480 / 1480 1050 / 1050 Balance 2237.5 / 2237.5 1480 / 1480 1050 / 1050 Intake: IV 1617.5 / 1617.5 1000 / 1000 1050 / 1050 NS Inj 1,000 ML @ 100 mls/hr IV 1000 / 1000 1000 / 1000 1000 / 1000 .CONT .Q10H [facility] Rx#:[id number] Zosyn 3.375 GM Premix 50 ML @ 100 / 100 50 / 50 100 mls/hr IV.SIG Q8H [facility] Rx#: [id number] Vancomycin Inj 1,750 MG In NS 517.5 / 517.5 Inj 500 ML @ 250 mls/hr IV.SIG Q24H [facility] Rx#:[id number] Oral 620 / 620 480 / 480 Other: # Voids 3 4 Date of Last Bowel Movement 12/04/17 # Bowel Movements 0 Narrative: Left foot great toe black discoloration/induration area seems to be greater today in size in comparison to yesterday, rest of toe seems more pink; 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 No purulence noted. Second digit mildly tender to palpation globally. Remaining digits are otherwise unremarkable. Results - Labs CBC & Chem 7: 12/04/17 06:30 12/05/17 03:47 Laboratory Results - last 24 hr 12/04/17 12/04/17 12/04/17 06:30 06:30 06:30 ESR 38 H Sodium Potassium Chloride Carbon Dioxide Anion Gap BUN Creatinine Estimated GFR Random Glucose Hemoglobin A1c 5.2 Calcium C-Reactive Protein 0.46 H 12/05/17 03:47 ESR Sodium 142 Potassium 5.1 D Chloride 109 H Carbon Dioxide 26.1 Anion Gap 7 BUN 15 Creatinine 1.38 H Estimated GFR 41 L Random Glucose 90 Hemoglobin A1c Calcium 8.6 C-Reactive Protein Microbiology 12/03/17 15:00 Blood - Peripheral Aerobic Blood Culture - Preliminary No growth in 2 days 12/03/17 15:00 Blood - Peripheral Anaerobic Blood Culture - Preliminary No growth in 2 days 12/03/17 14:55 Blood - Peripheral Aerobic Blood Culture - Preliminary No growth in 2 days 12/03/17 14:55 Blood - Peripheral Anaerobic Blood Culture - Preliminary No growth in 2 days - Imaging Impressions Aorta w/Runoff CTA 12/04/17 00:00 CONCLUSION: 1. Slight distal aortic ectasia. 2. No significant inflow stenoses and normal runoff. Extremity Arterial Study 12/04/17 00:00 CONCLUSION: 1. Normal ABIs bilaterally. 2. Slightly diminished right TBI with an absent pulse on the left suggesting intrinsic small vessel disease of the feet bilaterally, left worse than right. Foot MRI 12/04/17 00:00 CONCLUSION: 1. Degenerative changes at the great toe. No evidence for osteomyelitis. Assessment and Plan - Assessment (1) Lupus (systemic lupus erythematosus) Code(s): M32.9 - Systemic lupus erythematosus, unspecified Status: Chronic (2) Antiphospholipid antibody with hypercoagulable state Code(s): D68.61 - Antiphospholipid syndrome Status: Chronic (3) CVA (cerebral vascular accident) Code(s): I63.9 - Cerebral infarction, unspecified Status: Chronic (4) Fibromyalgia Code(s): M79.7 - Fibromyalgia Status: Chronic (5) Hypertension Code(s): I10 - Essential (primary) hypertension Status: Chronic (6) Cellulitis of foot Code(s): L03.119 - Cellulitis of unspecified part of limb Status: Acute (7) Vascular abnormality Code(s): I99.9 - Unspecified disorder of circulatory system Status: Acute - Plan Suspected cellulitis of left foot versus spider bite versus rheumatologic flareup - Appreciate podiatry and vascular surgery input CTA runoff shows no stenotic lesions, clinically the patient has good blood flow, and is on Eliquis so I do not suspect any acute thrombotic events - Continue vancomycin and Zosyn for now, only minimal improvement in erythema, MRI is negative for osteomyelitis but does demonstration considerable jt degeneration. Consulting infectious disease to see if any other treatment is warranted -We will start steroids in case this is some sort of vasculitis or autoimmune flareup/gouty flareup/vasculitis Antiphospholipid antibody syndrome - continue on chronic Eliquis History of CVA -continue physical therapy occupational therapy Fibromyalgia -continue on pain control Hypertension - home medications Lupus -continue on CellCept eliquis
--- NOTE | 2017-12-05 13:13 | P.PNPOD ---
Subjective Interval history: left foot pain remains about the same Physical Exam Vital signs: Vital Signs 12/04/17 14:54 12/04/17 16:00 12/04/17 20:23 Temperature 97.6 F 98.0 F Pulse Rate 71 85 Respiratory Rate 20 18 Blood Pressure 137/64 155/69 H Pulse Oximetry 96 97 12/05/17 00:39 12/05/17 04:28 12/05/17 08:00 Temperature 98.3 F 98.1 F 97.7 F Pulse Rate 71 82 78 Respiratory Rate 20 17 Blood Pressure 128/62 131/72 155/78 H Pulse Oximetry 93 L 97 97 12/05/17 12:00 Temperature 97.8 F Pulse Rate 73 Respiratory Rate 18 Blood Pressure 151/69 H Pulse Oximetry 96 Intake & Output 12/04/17 12/05/17 12/05/17 18:59 06:59 18:59 Intake Total 2237.5 / 2237.5 1480 / 1480 1050 / 1050 Balance 2237.5 / 2237.5 1480 / 1480 1050 / 1050 Intake: IV 1617.5 / 1617.5 1000 / 1000 1050 / 1050 NS Inj 1,000 ML @ 100 mls/hr IV 1000 / 1000 1000 / 1000 1000 / 1000 .CONT .Q10H [facility] Rx#:[id number] Zosyn 3.375 GM Premix 50 ML @ 100 / 100 50 / 50 100 mls/hr IV.SIG Q8H [facility] Rx#: [id number] Vancomycin Inj 1,750 MG In NS 517.5 / 517.5 Inj 500 ML @ 250 mls/hr IV.SIG Q24H [facility] Rx#:[id number] Oral 620 / 620 480 / 480 Other: # Voids 3 4 Date of Last Bowel Movement 12/04/17 # Bowel Movements 0 Narrative: Left foot - cool forefoot, early ischemic lesions of the hallux and 2nd digit no drainage no obvious abscess slight purple discloration, pain is significant, alight weakness of the foot and ankle, about the same since admission Right foot WNL good strength and NVS intact Medications and Allergies Active Medications: Active Medications Acetaminophen (Tylenol) 650 mg PO Q4H PRN PRN Reason: Temp > 100.4 Acetaminophen (Tylenol) 650 mg PO Q6HR PRN PRN Reason: PAIN SCALE 1 TO 2 Al Hydroxide/Mg Hydroxide (Milk Of Magnesia Liq) 30 ml PO Q12H PRN PRN Reason: Mild Constipation Amitriptyline HCl (Elavil) 25 mg PO TID [facility] Last Admin: 12/05/17 12:58 Dose: 25 mg Apixaban (Eliquis) 5 mg PO BID [facility] Last Admin: 12/05/17 09:10 Dose: 5 mg Atorvastatin Calcium (Lipitor) 80 mg PO DAILY [facility] Last Admin: 12/05/17 09:10 Dose: 80 mg Bisacodyl (Dulcolax Supp) 10 mg RECTAL DAILY PRN PRN Reason: SEVERE CONSITIPATION Calcitriol (Rocaltrol) 0.25 mcg PO DAILY [facility] Last Admin: 12/05/17 09:12 Dose: 0.25 mcg Celecoxib (Celebrex) 100 mg PO BID [facility] Last Admin: 12/05/17 09:08 Dose: 100 mg Famotidine (Pepcid) 10 mg PO BID [facility] Last Admin: 12/05/17 09:12 Dose: 10 mg Fluoxetine HCl (Prozac) 40 mg PO DAILY [facility] Last Admin: 12/05/17 09:12 Dose: 40 mg Sodium Chloride (Ns Inj) 1,000 mls @ 100 mls/hr IV.CONT .Q10H [facility] Last Admin: 12/05/17 09:11 Dose: 100 mls/hr Pharmacy Profile Note (Vancomycin Consult Pharmacy) 0 mls @ 0 mls/hr OTHER [facility] Piperacillin/Tazobactam/Dextrose (Zosyn 3.375 Gm Premix) 50 mls @ 100 mls/hr IV.SIG Q8H [facility] Last Infusion: 12/05/17 09:13 Dose: Infused Vancomycin HCl 1,750 mg/ (Sodium Chloride) 517.5 mls @ 250 mls/hr IV.SIG Q24H [facility] Last Admin: 12/05/17 05:12 Dose: 250 mls/hr Lactulose (Lactulose Liq) 30 ml PO DAILY PRN PRN Reason: SEVERE CONSITIPATION Methylprednisolone Sodium Succinate (Solumedrol Inj) 60 mg IV.PUSH Q12HR [facility] Metoprolol Tartrate (Lopressor) 50 mg PO BID [facility] Last Admin: 12/05/17 09:10 Dose: 50 mg Miscellaneous (Pill Splitter) 1 each OTHER [facility] Miscellaneous Information ([facility] Ordered Lab Info) 0 each OTHER ONCE ONE Stop: 12/06/17 05:46 Montelukast Sodium (Singulair) 10 mg PO QPM [facility] Last Admin: 12/04/17 18:25 Dose: 10 mg Morphine Sulfate (Morphine Inj) 2 mg IV.PUSH Q3H PRN PRN Reason: PAIN 3-5; IF UABLE TO TAKE PO Morphine Sulfate (Morphine Inj) 4 mg IV.PUSH Q3H PRN PRN Reason: PAIN 6-10;IF UNABLE TO TAKE PO Morphine Sulfate (Morphine Inj) 4 mg IV.PUSH Q3H PRN PRN Reason: BREAKTHROUGH PAIN Last Admin: 12/03/17 20:25 Dose: 4 mg Mycophenolate Mofetil (Cellcept) 500 mg PO BID [facility] Last Admin: 12/05/17 09:09 Dose: 500 mg Naloxone HCl (Narcan Inj) 0.4 mg IV.PUSH UNSCH PRN PRN Reason: SEE LABEL COMMENTS Nitroglycerin (Nitro-Bid 2% Oint) 1 inch TOPICAL Q8HR [facility] Last Admin: 12/05/17 12:59 Dose: 1 inch Ondansetron HCl (Zofran Inj) 4 mg IV.PUSH Q6H PRN PRN Reason: NAUSEA OR VOMITING Last Admin: 12/04/17 09:17 Dose: 4 mg Oxybutynin Chloride (Ditropan) 5 mg PO BID [facility] Last Admin: 12/05/17 09:09 Dose: 5 mg Oxycodone/Acetaminophen (Percocet 10/325 Mg) 1 tab PO Q6H PRN PRN Reason: PAIN SCALE 6 TO 10 Last Admin: 12/05/17 09:13 Dose: 1 tab Oxycodone/Acetaminophen (Percocet 5/325 Mg) 1 tab PO Q6H PRN PRN Reason: PAIN SCALE 3 TO 5 Last Admin: 12/04/17 20:31 Dose: 1 tab Pantoprazole Sodium (Protonix) 40 mg PO DAILY [facility] Last Admin: 12/05/17 09:11 Dose: 40 mg Pt:Hair,Skin, Nails (With Biotin 2500 Mg) 0 each PO DAILY [facility] Senna/Docusate Sodium (Margie-Colace) 1 tab PO BID [facility] Last Admin: 12/05/17 09:12 Dose: 1 tab Sennosides (Senokot) 17.2 mg PO Q12H PRN PRN Reason: Moderate Constipation Spironolactone (Aldactone) 25 mg PO DAILY [facility] Last Admin: 12/05/17 09:07 Dose: 25 mg Temazepam (Restoril) 15 mg PO HS PRN PRN Reason: INSOMNIA Tizanidine HCl (Zanaflex) 4 mg PO TID PRN PRN Reason: MUSCLE PAIN Allergies Allergy/AdvReac Type Severity Reaction Status Date / Time No Known Allergies Allergy Unverified 12/03/17 14:39 Home Medications Medication Instructions Recorded Confirmed Type Hair, Skin, Nails with Biotin 2,500 mcg PO DAILY 12/01/17 12/03/17 History amitriptyline 25 mg PO TID 12/01/17 12/03/17 History apixaban [Eliquis] 5 mg PO BID 12/01/17 12/03/17 History atorvastatin 80 mg PO DAILY 12/01/17 12/03/17 History calcitriol 0.25 mcg PO DAILY 12/01/17 12/03/17 History celecoxib 100 mg PO BID 12/01/17 12/03/17 History fluoxetine 40 mg PO DAILY 12/01/17 12/03/17 History metoprolol tartrate 50 mg PO BID 12/01/17 12/03/17 History montelukast 10 mg PO QPM 12/01/17 12/03/17 History mycophenolate mofetil 500 mg PO BID 12/01/17 12/03/17 History omeprazole 40 mg PO DAILY 12/01/17 12/03/17 History oxybutynin chloride 5 mg PO BID 12/01/17 12/03/17 History spironolactone 25 mg PO DAILY 12/01/17 12/03/17 History tizanidine 4 mg PO TID PRN 12/01/17 12/03/17 History Results - Labs CBC & Chem 7: 12/04/17 06:30 12/05/17 03:47 Laboratory Results - last 24 hr 12/04/17 12/04/17 12/04/17 06:30 06:30 06:30 ESR 38 H Sodium Potassium Chloride Carbon Dioxide Anion Gap BUN Creatinine Estimated GFR Random Glucose Hemoglobin A1c 5.2 Calcium C-Reactive Protein 0.46 H 12/05/17 03:47 ESR Sodium 142 Potassium 5.1 D Chloride 109 H Carbon Dioxide 26.1 Anion Gap 7 BUN 15 Creatinine 1.38 H Estimated GFR 41 L Random Glucose 90 Hemoglobin A1c Calcium 8.6 C-Reactive Protein Microbiology 12/03/17 15:00 Blood - Peripheral Aerobic Blood Culture - Preliminary No growth in 2 days 12/03/17 15:00 Blood - Peripheral Anaerobic Blood Culture - Preliminary No growth in 2 days 12/03/17 14:55 Blood - Peripheral Aerobic Blood Culture - Preliminary No growth in 2 days 12/03/17 14:55 Blood - Peripheral Anaerobic Blood Culture - Preliminary No growth in 2 days - Imaging Impressions Extremity Arterial Study 12/04/17 00:00 CONCLUSION: 1. Normal ABIs bilaterally. 2. Slightly diminished right TBI with an absent pulse on the left suggesting intrinsic small vessel disease of the feet bilaterally, left worse than right. Foot MRI 12/04/17 00:00 CONCLUSION: 1. Degenerative changes at the great toe. No evidence for osteomyelitis. Assessment and Plan - Assessment (1) Abrasion of foot or toe, left Status: Acute (2) Vascular abnormality Code(s): I99.9 - Unspecified disorder of circulatory system Status: Acute - Plan Warming blanket continue, added foot cradle request to keep pressure off toes, Nitro paste to toes continue. titer ordered. Reviewed case with Vascular and Medicine, likely vasculitis, no obvious ingrown nail, will follow intermittently.
[2017-12-05] MEDS: Morphine Inj 4 MG/ML Vial IV.PUSH PRN ×2 (13:15→17:11)
--- NOTE | 2017-12-05 16:36 | P.CONID ---
History of Present Illness Service: Infectious disease Consult date: 12/05/17 Requesting Physician: Chava Jasso Reason for Consult: Evaluate patient with refractory cellulitis Primary Care Provider: Mariela Devries DO Chief Complaint: LEFT GREAT TOE AND 2ND TOE INFECTION History of Present Illness: Patient seen and examined. Records reviewed. Patient is a 47-year-old female, presented to the hospital for further evaluation of redness and pain on her toes. She has had the problem for about a week, and she started noticing redness and swelling. She thought it started out like an ingrown nail. She was seen by her primary care physician, who gave her Bactrim, and she was being referred to a investment accounting clerk. However the patient was having worsening of her symptoms, so she presented to the hospital for further evaluation and treatment. She has not had any fever chills or sweats. She denies any respiratory complaint, GI or any urinary complaints. Patient has a known diagnosis of antiphospholipid syndrome, lupus, and fibromyalgia, and has had a stroke in the past. Since admission patient has been seen by podiatry and vascular surgery. CTA did not show any significant vascular disease. She has not been febrile. MRI of the foot did not show any osteomyelitis. Patient has been getting vancomycin and Zosyn. She has been cleared by vascular surgery for discharge. Infectious disease consultation has been requested to evaluate the patient with what looks like the refractory cellulitis. Patient continues to have significant pain. Review of Systems Constitutional: Denies chills, Denies fatigue, Denies fever(s) Eyes: Denies discharge, Denies itchy eyes Ears, Nose, Mouth, and Throat: Denies dizziness, Denies nasal congestion, Denies nasal discharge, Denies sinus pain, Denies sore throat Cardiovascular: Denies chest pain, Denies shortness of breath Respiratory: Denies chest congestion, Denies cough, Denies shortness of breath Gastrointestinal: Denies abdominal pain, Denies loose stools, Denies nausea, Denies pain with swallowing, Denies vomiting Genitourinary: Denies difficulty urinating, Denies painful urination Musculoskeletal: Reports joint pain Skin/Breast: Denies boil, Denies rash Neurologic: Denies headache(s) PMF - History History Provided By: Patient, Medical Record - Medical History Medical History: Medical History (Last Reviewed 12/05/17 @ 16:27 by Luz Liu MD) Hypertension Antiphospholipid antibody syndrome CVA (cerebral vascular accident) Fibromyalgia Lupus - Surgical History Surgical History: Surgical History (Last Reviewed 12/05/17 @ 16:27 by Luz Liu MD) H/O removal of cyst H/O tubal ligation Hx of prior ablation treatment History of hip surgery - Tobacco History Second Hand Smoke Exposure: Yes Tobacco Use In Past 30 Days: Yes Smoking Status: Current every day smoker Tobacco Type: Cigarettes - Alcohol History How Often Do You Have a Drink Containing Alcohol: Never - Substance Use History Substance History: Active Abuse - Substance Use Type Marijuana Status: Active Route Used: Inhalation Comment: uses for pain - Travel History Recent Travel in the [place] Within the Last 8 Weeks: No Recent Travel Out of the Country Within the Last 8 Weeks: No - Immunization History Tetanus Immunization: <5 Years Hx Influenza Vaccine This Season: Yes Medications and Allergies Active Medications: Active Medications Acetaminophen (Tylenol) 650 mg PO Q4H PRN PRN Reason: Temp > 100.4 Acetaminophen (Tylenol) 650 mg PO Q6HR PRN PRN Reason: PAIN SCALE 1 TO 2 Al Hydroxide/Mg Hydroxide (Milk Of Milagro [place]) 30 ml PO Q12H PRN PRN Reason: Mild Constipation Amitriptyline HCl (Elavil) 25 mg PO TID ON LICENSE OF [facility] Last Admin: 12/05/17 12:58 Dose: 25 mg Apixaban (Eliquis) 5 mg PO BID ON LICENSE OF [facility] Last Admin: 12/05/17 09:10 Dose: 5 mg Atorvastatin Calcium (Lipitor) 80 mg PO DAILY ON LICENSE OF [facility] Last Admin: 12/05/17 09:10 Dose: 80 mg Bisacodyl (Dulcolax Supp) 10 mg RECTAL DAILY PRN PRN Reason: SEVERE CONSITIPATION Calcitriol (Rocaltrol) 0.25 mcg PO DAILY ON LICENSE OF [facility] Last Admin: 12/05/17 09:12 Dose: 0.25 mcg Celecoxib (Celebrex) 100 mg PO BID ON LICENSE OF [facility] Last Admin: 12/05/17 09:08 Dose: 100 mg Famotidine (Pepcid) 10 mg PO BID ON LICENSE OF [facility] Last Admin: 12/05/17 09:12 Dose: 10 mg Fluoxetine HCl (Prozac) 40 mg PO DAILY ON LICENSE OF [facility] Last Admin: 12/05/17 09:12 Dose: 40 mg Sodium Chloride (Ns Inj) 1,000 mls @ 100 mls/hr IV.CONT .Q10H ON LICENSE OF [facility] Last Admin: 12/05/17 09:11 Dose: 100 mls/hr Lactulose (Lactulose Liq) 30 ml PO DAILY PRN PRN Reason: SEVERE CONSITIPATION Methylprednisolone Sodium Succinate (Solumedrol Inj) 60 mg IV.PUSH Q12HR ON LICENSE OF [facility] Metoprolol Tartrate (Lopressor) 50 mg PO BID ON LICENSE OF [facility] Last Admin: 12/05/17 09:10 Dose: 50 mg Miscellaneous (Pill Splitter) 1 each OTHER UNSCH ON LICENSE OF [facility] Miscellaneous Information ([facility] Ordered Lab Info) 0 each OTHER ONCE ONE Stop: 12/06/17 05:46 Montelukast Sodium (Singulair) 10 mg PO QPM ON LICENSE OF [facility] Last Admin: 12/04/17 18:25 Dose: 10 mg Morphine Sulfate (Morphine Inj) 2 mg IV.PUSH Q3H PRN PRN Reason: PAIN 3-5; IF UABLE TO TAKE PO Morphine Sulfate (Morphine Inj) 4 mg IV.PUSH Q3H PRN PRN Reason: PAIN 6-10;IF UNABLE TO TAKE PO Morphine Sulfate (Morphine Inj) 4 mg IV.PUSH Q3H PRN PRN Reason: BREAKTHROUGH PAIN Last Admin: 12/05/17 13:15 Dose: 4 mg Mycophenolate Mofetil (Cellcept) 500 mg PO BID ON LICENSE OF [facility] Last Admin: 12/05/17 09:09 Dose: 500 mg Naloxone HCl (Narcan Inj) 0.4 mg IV.PUSH UNSCH PRN PRN Reason: SEE LABEL COMMENTS Nitroglycerin (Nitro-Bid 2% Oint) 1 inch TOPICAL Q8HR ON LICENSE OF [facility] Last Admin: 12/05/17 12:59 Dose: 1 inch Ondansetron HCl (Zofran Inj) 4 mg IV.PUSH Q6H PRN PRN Reason: NAUSEA OR VOMITING Last Admin: 12/04/17 09:17 Dose: 4 mg Oxybutynin Chloride (Ditropan) 5 mg PO BID ON LICENSE OF [facility] Last Admin: 12/05/17 09:09 Dose: 5 mg Oxycodone/Acetaminophen (Percocet 10/325 Mg) 1 tab PO Q6H PRN PRN Reason: PAIN SCALE 6 TO 10 Last Admin: 12/05/17 15:33 Dose: 1 tab Oxycodone/Acetaminophen (Percocet 5/325 Mg) 1 tab PO Q6H PRN PRN Reason: PAIN SCALE 3 TO 5 Last Admin: 12/04/17 20:31 Dose: 1 tab Pantoprazole Sodium (Protonix) 40 mg PO DAILY ON LICENSE OF [facility] Last Admin: 12/05/17 09:11 Dose: 40 mg Pt:Hair,Skin, Nails (With Biotin 2500 Mg) 0 each PO DAILY ON LICENSE OF [facility] Senna/Docusate Sodium (Margie-Colace) 1 tab PO BID ON LICENSE OF [facility] Last Admin: 12/05/17 09:12 Dose: 1 tab Sennosides (Senokot) 17.2 mg PO Q12H PRN PRN Reason: Moderate Constipation Spironolactone (Aldactone) 25 mg PO DAILY ON LICENSE OF [facility] Last Admin: 12/05/17 09:07 Dose: 25 mg Temazepam (Restoril) 15 mg PO HS PRN PRN Reason: INSOMNIA Tizanidine HCl (Zanaflex) 4 mg PO TID PRN PRN Reason: MUSCLE PAIN Allergies Allergy/AdvReac Type Severity Reaction Status Date / Time No Known Allergies Allergy Unverified 12/03/17 14:39 Home Medications Medication Instructions Recorded Confirmed Type Hair, Skin, Nails with Biotin 2,500 mcg PO DAILY 12/01/17 12/03/17 History amitriptyline 25 mg PO TID 12/01/17 12/03/17 History apixaban [Eliquis] 5 mg PO BID 12/01/17 12/03/17 History atorvastatin 80 mg PO DAILY 12/01/17 12/03/17 History calcitriol 0.25 mcg PO DAILY 12/01/17 12/03/17 History celecoxib 100 mg PO BID 12/01/17 12/03/17 History fluoxetine 40 mg PO DAILY 12/01/17 12/03/17 History metoprolol tartrate 50 mg PO BID 12/01/17 12/03/17 History montelukast 10 mg PO QPM 12/01/17 12/03/17 History mycophenolate mofetil 500 mg PO BID 12/01/17 12/03/17 History omeprazole 40 mg PO DAILY 12/01/17 12/03/17 History oxybutynin chloride 5 mg PO BID 12/01/17 12/03/17 History spironolactone 25 mg PO DAILY 12/01/17 12/03/17 History tizanidine 4 mg PO TID PRN 12/01/17 12/03/17 History Exam Vital signs: Vital Signs 12/04/17 20:23 12/05/17 00:39 12/05/17 04:28 Temperature 98.0 F 98.3 F 98.1 F Pulse Rate 85 71 82 Respiratory Rate 18 18 Blood Pressure 155/69 H 128/62 131/72 Pulse Oximetry 97 93 L 97 12/05/17 08:00 12/05/17 12:00 Temperature 97.7 F 97.8 F Pulse Rate 78 73 Respiratory Rate 18 Blood Pressure 155/78 H 151/69 H Pulse Oximetry 97 96 Intake & Output 12/04/17 12/05/17 12/05/17 18:59 06:59 18:59 Intake Total 2237.5 / 2237.5 1480 / 1480 1050 / 1050 Balance 2237.5 / 2237.5 1480 / 1480 1050 / 1050 Intake: IV 1617.5 / 1617.5 1000 / 1000 1050 / 1050 NS Inj 1,000 ML @ 100 mls/hr IV 1000 / 1000 1000 / 1000 1000 / 1000 .CONT .Q10H ALONSO Rx#:[id number] Zosyn 3.375 GM Premix 50 ML @ 100 / 100 50 / 50 100 mls/hr IV.SIG Q8H ALONSO Rx#: [id number] Vancomycin Inj 1,750 MG In NS 517.5 / 517.5 Inj 500 ML @ 250 mls/hr IV.SIG Q24H ALONSO Rx#:[id number] Oral 620 / 620 480 / 480 Other: # Voids 3 4 Date of Last Bowel Movement 12/04/17 # Bowel Movements 0 Narrative: Physical Examination GENERAL: Patient is an obese, well-developed female, awake and alert, not in respiratory distress. SKIN: Cool and dry. No generalized rash, no ecchymoses and no evidence of embolic lesions. Has pick macules in BLE HEAD: Atraumatic. Normocephalic. No temporal wasting, or tenderness. EYES: [place] conjunctiva. No petechia or hemorrhage. Pupils equal, round and reactive to light. Extraocular movements full and intact. No scleral icterus. No injection or drainage. EARS, NOSE AND THROAT: Nose without bleeding or purulent nasal discharge. No sinus tenderness. Mucous membranes pink and moist. No oral lesions noted. No exudate. No oral thrush. NECK: Trachea midline. Supple and not tender, no meningeal signs CARDIOVASCULAR: Regular rate and rhythm. No murmurs, rubs or gallops heard RESPIRATORY: Clear to auscultation. Breath sounds equal bilaterally. No rales , wheezing or rhonchi ABDOMEN: Soft, non-tender, nondistended. Bowel sounds present and normoactive. No guarding. No rebound. No organomegaly. EXTREMITIES: No clubbing, cyanosis. Both feet are cool to touch. There is purplish discoloration of her big toe and second toe on L foot and pink color of the rest of her toes, they are all cold to touch. There is a dark reddish purplish lesion at tip of her L big toe, and a smaller one on tip of her second toe, ?vasculitis. No calf tenderness. Well perfused and warm. NEUROLOGICAL: Awake and alert. Cranial nerves grossly intact. Motor grossly within normal limits. PSYCHIATRIC: Normal affect, calm and cooperative. LINE: No evidence of infection Results - Labs CBC & Chem 7: 12/04/17 06:30 12/05/17 03:47 Labs: Laboratory Results - last 24 hr 12/04/17 12/05/17 06:30 03:47 Sodium 142 Potassium 5.1 D Chloride 109 H Carbon Dioxide 26.1 Anion Gap 7 BUN 15 Creatinine 1.38 H Estimated GFR 41 L Random Glucose 90 Hemoglobin A1c 5.2 Calcium 8.6 - Imaging Impressions Foot X-Ray 12/03/17 14:44 CONCLUSION: No plain film findings of osteomyelitis. If there is necessity for further evaluation contrast-enhanced MRI is recommended. Carotid Doppler Study 12/03/17 16:53 CONCLUSION: Negative carotid ultrasound examination. Aorta w/Runoff CTA 12/04/17 00:00 CONCLUSION: 1. Slight distal aortic ectasia. 2. No significant inflow stenoses and normal runoff. Extremity Arterial Study 12/04/17 00:00 CONCLUSION: 1. Normal ABIs bilaterally. 2. Slightly diminished right TBI with an absent pulse on the left suggesting intrinsic small vessel disease of the feet bilaterally, left worse than right. Foot MRI 12/04/17 00:00 CONCLUSION: 1. Degenerative changes at the great toe. No evidence for osteomyelitis. Assessment and Plan - Plan Impression Discoloration of all toes on L looks more vascular/ischemic and she has purplish discoloration of big and second toe - lesions on 2 toes, ?beginning ischemic ulcers, or vasculitis - ?small vessel disease due to her antiphospholipid syndrome Known thrombotic events due to lupus anticoagulant/antiphospholipid antibody syndrome Hx CVA Recommendation I would stop all Abx since no clear evidence of cellulitis or infected wounds Patient is being seen by podiatry and vascular Pain control Nothing to add from ID standpoint. Thank you for this consultation Explained my recommendation to the patient
[2017-12-05] MEDS: Montelukast 10 MG Tablet PO SCH (17:12)
[2017-12-05] MEDS: MethylPREDNISolone Sod Succinate Inj 125 MG/2 ML Vial IV.PUSH SCH (21:02)
[2017-12-06] MEDS: oxyCODONE/Acetaminophen 10/325 Tablet PO PRN ×2 (05:41→13:17)
[2017-12-06] MEDS ORDERED: Pharmacy Ordered Lab Info OTHER ONE (05:45)
[2017-12-06] MEDS: Sod Chloride 0.9% Inj 1,000 ML IV.CONT SCH (06:46)
[2017-12-06] MEDS: Celecoxib 100 MG Capsule PO SCH (08:15)
[2017-12-06] MEDS: Calcitriol 0.25 MCG Capsule PO SCH (08:16)
[2017-12-06] MEDS: Spironolactone 25 MG Tablet PO SCH (08:16)
[2017-12-06] MEDS: Senna/Docusate Sodium 8.6/50 MG Tablet PO SCH (08:16)
[2017-12-06] MEDS: Famotidine 20 MG Tablet PO SCH (08:18)
[2017-12-06] MEDS: Metoprolol Tartrate 50 MG Tablet PO SCH (08:18)
[2017-12-06] MEDS: FLUoxetine 20 MG Capsule PO SCH (08:18)
[2017-12-06] MEDS: Amitriptyline 25 MG Tablet PO SCH ×2 (08:19→12:21)
[2017-12-06 09:29] LABS: Calcium 9.4 mg/dL (8.5-10.1); Carbon Dioxide 17.3 meq/L (21.0-32.0); Potassium 4.6 meq/L (3.5-5.1)
[2017-12-06] MEDS: MethylPREDNISolone Sod Succinate Inj 125 MG/2 ML Vial IV.PUSH SCH (10:15)
--- NOTE | 2017-12-06 10:26 | P.DS ---
Date of admission: 12/03/17 16:18 Primary care physician: Mariela Devries DO Brief History from admission: Patient is a 47-year-old female who presents for left great toe and second toe foot infection that has been going on for at least a week. Patient states it started like an ingrown nail. Then developed redness and swelling. She was seen by her primary care physician and here a couple days ago. Was started on Bactrim. Was told to follow-up with quality control clerk. Was supposed to see one tomorrow but symptoms worsened patient decided to come here. Patient has had redness and "darkening of the skin and has worsening and spreading to the other toes. Denies any numbness or tingling or weakness is wheelchair-bound secondary to CVA in a younger age has history of antiphospholipid antibody syndrome, lupus and fibromyalgia denies any issues of urine or bone marrow issues. Pain was 7 out of 10 Seen in the emergency department. Started on antibiotics. Noted to have decreased pulses in the left lower extremity. Vascular has been consult and will consult podiatry also. We will continue on antibiotics will get an echocardiogram and carotid Doppler Past medical history is significant for antiphospholipid antibody syndrome history of CVA history of fibromyalgia hypertension and lupus Patient was noted to be scheduled for surgery on a hip in the next few days DS: Diagnosis - Discharge Diagnosis (1) Lupus (systemic lupus erythematosus) Status: Chronic (2) Antiphospholipid antibody with hypercoagulable state Status: Chronic (3) CVA (cerebral vascular accident) Status: Chronic (4) Fibromyalgia Status: Chronic (5) Hypertension Status: Chronic (6) Cellulitis of foot Status: Acute (7) Vascular abnormality Status: Acute DS: Medications - Discharge Medications Prescriptions: oxycodone-acetaminophen 1 tab PO Q8H PRN #21 tab PRN Reason: Acute Pain prednisone 50 mg PO DAILY #20 tab DS: Summary Hospital Course: Patient was admitted, started on IV antibiotics. Vascular surgery and podiatry are both consulted, CTA was negative for any significant stenosis, MANUEL showed mildly diminished pulses in the left distal toe. Infectious disease discontinue antibiotics as they did not feel there was any obvious evidence for infection, MRI was negative for osteomyelitis. Patient's symptoms significantly improved with steroids out of concern for a small vessel vasculitis. Tolerating p.o. intake well and pain was controlled on oral pain medications. Patient did have a episode of vertigo which improved with Antivert. Patient has met maximal benefit from hospitalization is clinically stable for discharge. Patient was counseled extensively to follow-up with her PCP and her financial adviser within 7-10 days to monitor for improvement. Will be discharged on a scheduled daily high-dose prednisone regimen, to be modified by her financial adviser. - Time Spent with Patient Total time spent providing and/or coordinating discharge services: Less than 30 minutes - Quality: VTE Deep Vein Thrombosis/Pulmonary Embolism Present on Admission: No Exam Vital signs: Vital Signs 12/05/17 12:00 12/05/17 16:00 12/05/17 20:26 Temperature 97.8 F 98.1 F 98.3 F Pulse Rate 73 72 80 Respiratory Rate 18 18 18 Blood Pressure 151/69 H 161/73 H 146/75 H Pulse Oximetry 96 94 L 98 12/06/17 00:05 12/06/17 00:29 12/06/17 04:28 Temperature 97.7 F 97.8 F Pulse Rate 75 84 77 Respiratory Rate 20 17 18 Blood Pressure 158/86 H 152/74 H Pulse Oximetry 94 L 97 12/06/17 08:00 Temperature 97.8 F Pulse Rate 88 Respiratory Rate 20 Blood Pressure 184/115 H Pulse Oximetry 98 Intake & Output 12/05/17 12/06/17 12/06/17 18:59 06:59 18:59 Intake Total 2770 / 2770 1347.5 / 1347.5 Balance 2770 / 2770 1347.5 / 1347.5 Intake: IV 2049 567.5 / 567.5 NS Inj 1,000 ML @ 100 mls/hr IV 1999 / 1999 .CONT .Q10H [facility]ONSO Rx#:[id number] Zosyn 3.375 GM Premix 50 ML @ 50 / 50 50 / 50 100 mls/hr IV.SIG Q8H ALONSO Rx#: [id number] Vancomycin Inj 1,750 MG In NS 517.5 / 517.5 Inj 500 ML @ 250 mls/hr IV.SIG Q24H [facility]ONSO Rx#:[id number] Oral 720 / 720 780 / 780 Other: # Voids 4 4 Date of Last Bowel Movement 12/04/17 # Bowel Movements 1 Narrative: Left foot with significant improvement over first digit in terms of erythema and redness, appears to have much more normal color today over left distal first and second phalanges. Still has unchanged black discoloration over tips of first 2 toes. Pain is significantly improved significantly improved tenderness to palpation good range of motion. Patient is seen ambulating without much difficulty. Results Procedures completed during hospitalization: none Labs on day of discharge: Labs from last 24 hours 12/06/17 12/05/17 Unknown 13:45 Sodium 136 Potassium 4.6 Chloride 108 H Carbon Dioxide 17.3 L Anion Gap 11 BUN 13 Creatinine 1.07 H Estimated GFR 55 L Random Glucose 96 Calcium 9.4 D Rheumatoid Factor Pending Screen Pending Pattern Pending SS-A Antibody Pending SS-B Antibody Pending Sm ([place]) Antibody Pending SM/ALL SOURCE INTELLIGENCE ANALYST Antibody Pending Scl-70 Antibody Pending Anti-ds DNA (Crithidia) Pending Preliminary micro results at discharge 12/03/17 15:00 Aerobic Blood Culture - Preliminary Blood - Peripheral No growth in 2 days Anaerobic Blood Culture - Preliminary No growth in 2 days 12/03/17 14:55 Aerobic Blood Culture - Preliminary Blood - Peripheral No growth in 2 days Anaerobic Blood Culture - Preliminary No growth in 2 days - Impressions ITS Impressions Foot X-Ray 12/03/17 14:44 CONCLUSION: No plain film findings of osteomyelitis. If there is necessity for further evaluation contrast-enhanced MRI is recommended. Carotid Doppler Study 12/03/17 16:53 CONCLUSION: Negative carotid ultrasound examination. Aorta w/Runoff CTA 12/04/17 00:00 CONCLUSION: 1. Slight distal aortic ectasia. 2. No significant inflow stenoses and normal runoff. Extremity Arterial Study 12/04/17 00:00 CONCLUSION: 1. Normal ABIs bilaterally. 2. Slightly diminished right TBI with an absent pulse on the left suggesting intrinsic small vessel disease of the feet bilaterally, left worse than right. Foot MRI 12/04/17 00:00 CONCLUSION: 1. Degenerative changes at the great toe. No evidence for osteomyelitis. Discharge Plan - Discharge Disposition Patient Disposition: 01 Discharge Home - Discharge Condition Condition: Stable - Discharge Order Discharge Orders: Discharge Order (Routine); Ordered 12/06/17 Ordered By: Chava Jasso Vascular Surgery Clear for Discharge (Routine); Ordered 12/05/17 Ordered By: Janell Louis - Physicians Team Primary Care Provider: Mariela Devries Attending Provider: Chava Jasso Other Providers: Zechariah Fletcher MD ; Isreal Melchor DPM ; Carlos Gonzalez ; Luz Liu MD
[2017-12-10 23:51] LABS: DS DNA Ab (Crithidia) POSITIVE (NEGATIVE)
== END 2017-12-06 13:32 | disposition home or self-care (01) ==
LOC: NEPC 14:11 → NEDA 16:18 → N07 18:30
PROVIDERS: ADMIT Hospitalist; ATTEND Hospitalist